=== PATIENT | male | born 1965 | race Caucasian/White ===

== ENCOUNTER 2021-02-24 15:46 | Emergency (ER) | payer OTHER, MEDICARE ==
[2021-02-24] MEDS ORDERED: HYDROcodone/Acetaminophen 10/325 mg Tablet ONE (17:12)
== END 2021-02-24 18:45 | disposition home or self-care (01) ==
LOC: CSHERS 15:46
DX: S62.337A Displaced fracture of neck of fifth metacarpal bone, left hand, initial encounter for closed fracture (principal); S52.125A Nondisplaced fracture of head of left radius, initial encounter for closed fracture; E11.9 Type 2 diabetes mellitus without complications; J44.9 Chronic obstructive pulmonary disease, unspecified; L40.9 Psoriasis, unspecified; I11.0 Hypertensive heart disease with heart failure; I50.9 Heart failure, unspecified; Z87.891 Personal history of nicotine dependence; W01.0XXA Fall on same level from slipping, tripping and stumbling without subsequent striking against object, initial encounter
CPT/HCPCS: 26600

== ENCOUNTER 2021-03-16 21:19 | Emergency (ER) | payer MEDICARE ==
[2021-03-16 22:07] LABS: #Basophils 0.1 10x3/uL (0.0-0.2); #Eosinphils 0.2 10x3/uL (0.0-0.5); #Monocytes 0.5 10x3/uL (0.0-1.1); #Neutrophils 7.2 10x3/uL (1.5-8.4); %Basophils 0.6 % (0.0-2.0); %Lymphocytes 18.8 % (18.0-47.0); %Monocytes 4.9 % (0.0-10.0); %Neutrophils 73.1 % (40.0-75.0); Hemoglobin 12.8 g/dL (13.5-17.5); Mean Corpuscular HGB CONC 32.6 g/dL (32.0-36.0); Mean Corpuscular Hemoglobin 27.9 pg (27.0-33.0); Mean Corpuscular Volume 85.6 fl (81.2-95.1); Platelet Count 347 10x3/uL (150-450); Red Blood Cell (RBC) Count 4.59 10x6/uL (4.32-5.72); White Blood Cell (WBC) Count 9.8 10x3/uL (3.5-10.5)
[2021-03-16] MEDS ORDERED: Aspirin Chewable 81 MG TAB ONE (22:10)
[2021-03-16 22:11] LABS: ALT (SGPT) 14 U/L (8-55); AST (SGOT) 10 U/L (5-34); Alkaline Phosphatase 68 U/L (40-110); Anion Gap 13 mmol/L (10-20); BUN (Urea Nitrogen) 20 mg/dL (8.4-25.7); Bilirubin, Total 0.3 mg/dL (0.2-1.2); Calc. Creatinine Clearance 0 mL/min (70-130); Calcium 8.6 mg/dL (7.8-10.44); Carbon Dioxide 22 mmol/L (22-29); Chloride 106 mmol/L (98-107); Globulin 2.7 g/dL (2.4-3.5); Glucose 208 mg/dL (70-105); Potassium 4.3 mmol/L (3.5-5.1); Protein, Total 6.7 g/dL (6.0-8.3); Sodium 137 mmol/L (136-145)
[2021-03-16 22:33] LABS: CKMB 1.6 ng/mL (0-6.6)
[2021-03-16 23:04] LABS: SARS-CoV-2 NAA Rapid Test Not Detected (NotDetected)
== END 2021-03-17 01:48 | disposition short-term general hospital (02) ==
LOC: CSHERS 21:19
DX: R53.1 Weakness (principal); R77.8 Other specified abnormalities of plasma proteins; Z20.822 Contact with and (suspected) exposure to COVID-19; I11.0 Hypertensive heart disease with heart failure; I50.9 Heart failure, unspecified; E11.9 Type 2 diabetes mellitus without complications; J44.9 Chronic obstructive pulmonary disease, unspecified; Z87.891 Personal history of nicotine dependence
CPT/HCPCS: 71045; 80053; 82553; 83880; 84484; 85025; 93005; 99285; U0002

== ENCOUNTER 2021-04-01 20:01 | Emergency (ER) | payer MEDICARE ==
[2021-04-01 20:58] LABS: #Basophils 0.1 10x3/uL (0.0-0.2); #Monocytes 0.7 10x3/uL (0.0-1.1); #Neutrophils 9.7 10x3/uL (1.5-8.4); %Basophils 0.4 % (0.0-2.0); %Eosinophils 0.1 % (0.0-6.0); %Lymphocytes 9.7 % (18.0-47.0); %Monocytes 5.9 % (0.0-10.0); %Neutrophils 82.6 % (40.0-75.0); Mean Corpuscular HGB CONC 33.1 g/dL (32.0-36.0); Mean Corpuscular Hemoglobin 27.7 pg (27.0-33.0); Mean Corpuscular Volume 83.6 fl (81.2-95.1); Platelet Count 395 10x3/uL (150-450); RBC Distribution Width 13.7 % (11.5-14.5); White Blood Cell (WBC) Count 11.8 10x3/uL (3.5-10.5)
[2021-04-01 21:11] LABS: ALT (SGPT) 18 U/L (8-55); AST (SGOT) 13 U/L (5-34); Alkaline Phosphatase 66 U/L (40-110); Anion Gap 13 mmol/L (10-20); BUN (Urea Nitrogen) 19 mg/dL (8.4-25.7); Bilirubin, Total 0.3 mg/dL (0.2-1.2); Calc. Creatinine Clearance 0 mL/min (70-130); Calcium 9.1 mg/dL (7.8-10.44); Carbon Dioxide 23 mmol/L (22-29); Chloride 101 mmol/L (98-107); Globulin 3.5 g/dL (2.4-3.5); Glucose 272 mg/dL (70-105); Potassium 4.2 mmol/L (3.5-5.1); Protein, Total 7.5 g/dL (6.0-8.3); Sodium 133 mmol/L (136-145)
[2021-04-01 21:41] LABS: CKMB 4.1 ng/mL (0-6.6)
[2021-04-01] MEDS ORDERED: Aspirin Chewable 81 MG TAB ONE (22:28)
== END 2021-04-02 00:49 | disposition short-term general hospital (02) ==
LOC: CSHERS 20:01
DX: R42 Dizziness and giddiness (principal); R05.9 Cough, unspecified; E11.9 Type 2 diabetes mellitus without complications; J44.9 Chronic obstructive pulmonary disease, unspecified; I11.0 Hypertensive heart disease with heart failure; I50.9 Heart failure, unspecified; Z87.891 Personal history of nicotine dependence; Z79.899 Other long term (current) drug therapy
CPT/HCPCS: 70450; 71045; 80053; 82553; 84484; 85025; 93005

== ENCOUNTER 2021-04-24 02:35 | Observation (INO) | payer MEDICARE ==
[2021-04-24] MEDS ORDERED: Meclizine HCl 25 MG TAB ONE (03:03)
[2021-04-24 03:16] LABS: #Basophils 0.1 10x3/uL (0.0-0.2); #Eosinphils 0.4 10x3/uL (0.0-0.5); #Monocytes 0.6 10x3/uL (0.0-1.1); #Neutrophils 4.4 10x3/uL (1.5-8.4); %Basophils 0.7 % (0.0-2.0); %Eosinophils 5.8 % (0.0-6.0); %Lymphocytes 20.3 % (18.0-47.0); %Monocytes 8.1 % (0.0-10.0); %Neutrophils 64.4 % (40.0-75.0); Hemoglobin 12.8 g/dL (13.5-17.5); Mean Corpuscular HGB CONC 33.2 g/dL (32.0-36.0); Mean Corpuscular Hemoglobin 27.8 pg (27.0-33.0); Mean Corpuscular Volume 83.7 fl (81.2-95.1); Mean Platelet Volume 9.1 fl (7.4-10.4); Platelet Count 290 10x3/uL (150-450); RBC Distribution Width 14.5 % (11.5-14.5); Red Blood Cell (RBC) Count 4.61 10x6/uL (4.32-5.72); White Blood Cell (WBC) Count 6.9 10x3/uL (3.5-10.5)
[2021-04-24 03:30] LABS: ALT (SGPT) 16 U/L (8-55); AST (SGOT) 10 U/L (5-34); Albumin 4.2 g/dL (3.5-5.0); Alkaline Phosphatase 77 U/L (40-110); Anion Gap 14 mmol/L (10-20); BUN (Urea Nitrogen) 22 mg/dL (8.4-25.7); Bilirubin, Total 0.3 mg/dL (0.2-1.2); Calc. Creatinine Clearance 0 mL/min (70-130); Calcium 8.7 mg/dL (7.8-10.44); Carbon Dioxide 25 mmol/L (22-29); Chloride 102 mmol/L (98-107); Glucose 236 mg/dL (70-105); Potassium 4.4 mmol/L (3.5-5.1); Protein, Total 7.2 g/dL (6.0-8.3); Sodium 137 mmol/L (136-145)
[2021-04-24 03:50] LABS: CKMB 1.4 ng/mL (0-6.6)
[2021-04-24] MEDS ORDERED: Aspirin 325 MG TAB ONE (04:38)
[2021-04-24] MEDS ORDERED: Ondansetron PF 4 MG/2 ML Vial IVP PRN (05:47)
[2021-04-24] MEDS ORDERED: Guaifenesin DM 100-10/5 ML UDCUP PO PRN (05:47)
[2021-04-24] MEDS ORDERED: Acetaminophen 325 MG TAB PO PRN (05:47)
[2021-04-24] MEDS ORDERED: HYDROcodone/Acetaminophen 5/325 mg Tablet PO PRN (05:47)
[2021-04-24] MEDS ORDERED: Dextrose 5% in Water 1,000 ML IV PRN (05:47)
[2021-04-24] MEDS ORDERED: Senokot S 8.6-50 MG TAB PO PRN (05:47)
[2021-04-24] MEDS ORDERED: Dextrose 50% Abboject 50 ML SYRINGE SLOW IVP PRN (05:47)
[2021-04-24] MEDS ORDERED: Calcium Carbonate 500 MG ChewTAB PO PRN (05:47)
[2021-04-24] MEDS ORDERED: HumaLOG 300 UNITS/3 ML VIAL SC PRN (05:47)
[2021-04-24] MEDS ORDERED: Mometasone 200 MCG/Formoterol 5 MCG 120 PUFF INHALER INH SCH (06:30)
[2021-04-24] MEDS ORDERED: metFORMIN 500 MG TAB PO SCH (08:00)
[2021-04-24 08:12] VITALS: BMI 40.6
[2021-04-24 08:26] LABS: CKMB 1.2 ng/mL (0-6.6)
[2021-04-24] MEDS ORDERED: Nicotine 14 MG PATCH TD SCH (09:00)
[2021-04-24] MEDS ORDERED: Fluticasone Propionate Nasal Spray 16 gm Bottle NASAL SCH (09:00)
[2021-04-24] MEDS ORDERED: Carvedilol 25 MG TAB PO SCH (09:00)
[2021-04-24] MEDS ORDERED: Furosemide 40 MG TAB PO SCH (09:00)
[2021-04-24] MEDS ORDERED: Clopidogrel Bisulfate 75 MG TAB PO SCH (09:00)
[2021-04-24] MEDS ORDERED: Enoxaparin Sodium 40 MG/0.4 ML SYRINGE SC SCH (09:00)
[2021-04-24] MEDS ORDERED: Oxymetazoline HCl 0.05% ( 15 ML ) NASAL SCH (09:00)
[2021-04-24] MEDS ORDERED: Ferrous Sulfate 325 MG TAB PO SCH (09:00)
[2021-04-24] MEDS ORDERED: Amoxicillin/Potassium Clav 875 MG TAB PO SCH (09:00)
[2021-04-24] MEDS ORDERED: Aspirin 81 mg Enteric Coated Tablet PO SCH (09:00)
[2021-04-24 11:22] LABS: SARS-CoV-2 NAA Rapid Test Not Detected (NotDetected)
[2021-04-24 14:02] LABS: CKMB 1.2 ng/mL (0-6.6)
[2021-04-24 16:44] VITALS: BP 124/71; TEMP 99.1
[2021-04-24 17:05] LABS: Hemoglobin A1c 8.2 % (4.0-6.0)
[2021-04-24] MEDS ORDERED: Atorvastatin Calcium 20 MG TAB PO SCH (21:00)
[2021-04-24] MEDS ORDERED: Montelukast Sodium 10 mg Tablet PO SCH (21:00)
[2021-04-24] MEDS ORDERED: rOPINIRole HCl 1 MG TAB PO SCH (21:00)
== END 2021-04-24 17:34 | disposition home or self-care (01) ==
LOC: CSHERS 02:35 → INTOOBSV 06:43 → CSHTELE 06:43
PROVIDERS: ADMIT Student in an Organized Health Care Education/Training Program; ATTEND Internal Medicine
DX: R42 Dizziness and giddiness (principal); R77.8 Other specified abnormalities of plasma proteins; E78.5 Hyperlipidemia, unspecified; E11.22 Type 2 diabetes mellitus with diabetic chronic kidney disease; I13.0 Hypertensive heart and chronic kidney disease with heart failure and stage 1 through stage 4 chronic kidney disease, or unspecified chronic kidney disease; I50.32 Chronic diastolic (congestive) heart failure; N18.30 Chronic kidney disease, stage 3 unspecified; J44.9 Chronic obstructive pulmonary disease, unspecified; G47.33 Obstructive sleep apnea (adult) (pediatric); E66.9 Obesity, unspecified; I25.10 Atherosclerotic heart disease of native coronary artery without angina pectoris; Z86.73 Personal history of transient ischemic attack (TIA), and cerebral infarction without residual deficits; F17.210 Nicotine dependence, cigarettes, uncomplicated; J32.9 Chronic sinusitis, unspecified; Z79.899 Other long term (current) drug therapy; Z79.84 Long term (current) use of oral hypoglycemic drugs; Z79.82 Long term (current) use of aspirin; Z20.822 Contact with and (suspected) exposure to COVID-19
CPT/HCPCS: 70450; 70551; 80053; 82553; 82962; 83036; 84484 ×2; 85025; 93005; 97139; 99285; U0002; 36415; 36416; J1650

== ENCOUNTER 2021-05-06 21:16 | Emergency (ER) | payer MEDICARE ==
[2021-05-06] MEDS ORDERED: Meclizine HCl 25 MG TAB ONE (21:53)
[2021-05-06] MEDS ORDERED: Diazepam 5 MG TAB ONE (21:53)
[2021-05-06 22:04] LABS: #Basophils 0.1 10x3/uL (0.0-0.2); #Eosinphils 0.3 10x3/uL (0.0-0.5); #Monocytes 0.6 10x3/uL (0.0-1.1); #Neutrophils 6.6 10x3/uL (1.5-8.4); %Basophils 0.7 % (0.0-2.0); %Eosinophils 3.2 % (0.0-6.0); %Lymphocytes 20.5 % (18.0-47.0); %Monocytes 6.2 % (0.0-10.0); %Neutrophils 68.2 % (40.0-75.0); Hemoglobin 12.8 g/dL (13.5-17.5); Mean Corpuscular HGB CONC 32.8 g/dL (32.0-36.0); Mean Corpuscular Hemoglobin 27.7 pg (27.0-33.0); Mean Corpuscular Volume 84.4 fl (81.2-95.1); Mean Platelet Volume 9.1 fl (7.4-10.4); Platelet Count 283 10x3/uL (150-450); RBC Distribution Width 14.5 % (11.5-14.5); Red Blood Cell (RBC) Count 4.62 10x6/uL (4.32-5.72); White Blood Cell (WBC) Count 9.6 10x3/uL (3.5-10.5)
[2021-05-06 22:24] LABS: ALT (SGPT) 18 U/L (8-55); AST (SGOT) 12 U/L (5-34); Albumin 4.1 g/dL (3.5-5.0); Alkaline Phosphatase 71 U/L (40-110); Anion Gap 15 mmol/L (10-20); BUN (Urea Nitrogen) 19 mg/dL (8.4-25.7); Bilirubin, Total 0.3 mg/dL (0.2-1.2); Calc. Creatinine Clearance 0 mL/min (70-130); Calcium 9.1 mg/dL (7.8-10.44); Carbon Dioxide 22 mmol/L (22-29); Chloride 105 mmol/L (98-107); Globulin 3.2 g/dL (2.4-3.5); Glucose 149 mg/dL (70-105); Potassium 4.5 mmol/L (3.5-5.1); Protein, Total 7.3 g/dL (6.0-8.3); Sodium 137 mmol/L (136-145)
[2021-05-06] MEDS ORDERED: Ondansetron PF 4 MG/2 ML Vial ONE (22:38)
[2021-05-06 22:43] LABS: CKMB 1.8 ng/mL (0-6.6)
== END 2021-05-06 23:00 | disposition home or self-care (01) ==
LOC: CSHERS 21:16
DX: R42 Dizziness and giddiness (principal); H55.00 Unspecified nystagmus; J44.9 Chronic obstructive pulmonary disease, unspecified; E11.9 Type 2 diabetes mellitus without complications; I11.0 Hypertensive heart disease with heart failure; I50.9 Heart failure, unspecified; Z86.711 Personal history of pulmonary embolism; Z87.891 Personal history of nicotine dependence; Z79.899 Other long term (current) drug therapy; Z79.84 Long term (current) use of oral hypoglycemic drugs; Z86.73 Personal history of transient ischemic attack (TIA), and cerebral infarction without residual deficits
CPT/HCPCS: 70450; 71045; 80053; 82553; 84484; 85025; 93005; 96374; J2405

== ENCOUNTER 2021-05-15 19:23 | Inpatient (IN) | payer MEDICARE ==
[2021-05-15 20:08] LABS: #Basophils 0.1 10x3/uL (0.0-0.2); #Eosinphils 0.3 10x3/uL (0.0-0.5); #Monocytes 0.7 10x3/uL (0.0-1.1); #Neutrophils 6.6 10x3/uL (1.5-8.4); %Basophils 0.6 % (0.0-2.0); %Eosinophils 3.1 % (0.0-6.0); %Monocytes 6.9 % (0.0-10.0); %Neutrophils 65.7 % (40.0-75.0); Hemoglobin 13.5 g/dL (13.5-17.5); Mean Corpuscular HGB CONC 32.8 g/dL (32.0-36.0); Mean Corpuscular Hemoglobin 27.9 pg (27.0-33.0); Mean Corpuscular Volume 85.1 fl (81.2-95.1); Mean Platelet Volume 8.9 fl (7.4-10.4); Platelet Count 331 10x3/uL (150-450); RBC Distribution Width 15.1 % (11.5-14.5); Red Blood Cell (RBC) Count 4.84 10x6/uL (4.32-5.72)
[2021-05-15 20:14] LABS: ALT (SGPT) 24 U/L (8-55); AST (SGOT) 15 U/L (5-34); Albumin 4.2 g/dL (3.5-5.0); Alkaline Phosphatase 71 U/L (40-110); Anion Gap 18 mmol/L (10-20); BUN (Urea Nitrogen) 21 mg/dL (8.4-25.7); Bilirubin, Total 0.4 mg/dL (0.2-1.2); Calc. Creatinine Clearance 0 mL/min (70-130); Calcium 8.5 mg/dL (7.8-10.44); Carbon Dioxide 22 mmol/L (22-29); Chloride 103 mmol/L (98-107); Globulin 2.9 g/dL (2.4-3.5); Glucose 160 mg/dL (70-105); Protein, Total 7.1 g/dL (6.0-8.3); Sodium 139 mmol/L (136-145)
[2021-05-15] MEDS ORDERED: Meclizine HCl 25 MG TAB ONE (20:31)
[2021-05-15] MEDS ORDERED: Aspirin Chewable 81 MG TAB ONE (21:41)
[2021-05-15] MEDS ORDERED: Aspirin 325 MG TAB PO SCH (22:45)
[2021-05-15] MEDS ORDERED: FLU VACC QS2021-22(6MOS UP)/PF 60 MCG/0.5 ML SYRINGE IM ONE (23:45)
[2021-05-15] MEDS ORDERED: Prevnar 13-Val Conj/PF 0.5 ML SYRINGE IM ONE (23:45)
[2021-05-15 23:55] LABS: Magnesium 1.8 mg/dL (1.6-2.6)
[2021-05-16 00:01] LABS: Troponin I 0.046 ng/mL (< 0.028)
[2021-05-16 04:52] VITALS: BMI 40.6
[2021-05-16 05:25] LABS: Anion Gap 20 mmol/L (10-20); BUN (Urea Nitrogen) 19 mg/dL (8.4-25.7); Calc. Creatinine Clearance 109 mL/min (70-130); Calcium 8.8 mg/dL (7.8-10.44); Carbon Dioxide 19 mmol/L (22-29); Cardiac Risk 5.9 (Less than 4.5); Chloride 105 mmol/L (98-107); Cholesterol 176 mg/dl (< 200 Desired); Glucose 113 mg/dL (70-105); HDL Cholesterol 30 mg/dL (>60 Neg Risk); LDL Cholesterol, Calculated 103 mg/dL; Sodium 140 mmol/L (136-145); Triglycerides 215 mg/dL (Less than 150)
[2021-05-16 05:27] LABS: Troponin I 0.027 ng/mL (< 0.028)
[2021-05-16] MEDS ORDERED: Aspirin 300 MG Suppository PR SCH (06:15)
[2021-05-16] MEDS ORDERED: Nitroglycerin 0.4 MG TAB (25 Tab Bottle) SL PRN (06:29)
[2021-05-16] MEDS ORDERED: Mometasone/Formoterol 60 PUFF AER INH SCH (06:30)
[2021-05-16] MEDS: Sodium Chloride 0.9% 1,000 ML IV SCH (06:53)
[2021-05-16] MEDS: Aspirin 300 MG Suppository PR SCH (07:41)
[2021-05-16 07:57] LABS: #Basophils 0.1 10x3/uL (0.0-0.2); #Eosinphils 0.3 10x3/uL (0.0-0.5); #Monocytes 0.7 10x3/uL (0.0-1.1); #Neutrophils 5.8 10x3/uL (1.5-8.4); %Basophils 0.6 % (0.0-2.0); %Eosinophils 3.2 % (0.0-6.0); %Lymphocytes 26.9 % (18.0-47.0); %Monocytes 7.2 % (0.0-10.0); %Neutrophils 61.7 % (40.0-75.0); Hemoglobin 13.1 g/dL (13.5-17.5); Mean Corpuscular Hemoglobin 27.6 pg (27.0-33.0); Mean Corpuscular Volume 86.3 fl (81.2-95.1); Mean Platelet Volume 8.8 fl (7.4-10.4); Platelet Count 318 10x3/uL (150-450); RBC Distribution Width 15.2 % (11.5-14.5); Red Blood Cell (RBC) Count 4.74 10x6/uL (4.32-5.72); White Blood Cell (WBC) Count 9.4 10x3/uL (3.5-10.5)
[2021-05-16] MEDS ORDERED: Furosemide 40 MG/4 ML VIAL SLOW IVP SCH (08:45)
[2021-05-16] MEDS: Clopidogrel Bisulfate 75 MG TAB PO SCH (08:55)
[2021-05-16] MEDS: Carvedilol 25 MG TAB PO SCH ×2 (08:55→20:53)
[2021-05-16] MEDS: Montelukast Sodium 10 mg Tablet PO SCH (08:55)
[2021-05-16] MEDS: metFORMIN 500 MG TAB PO SCH ×2 (08:55→15:40)
[2021-05-16] MEDS: Ferrous Sulfate 325 MG TAB PO SCH (08:55)
[2021-05-16] MEDS: Potassium Chloride 20 MEQ TAB PO SCH (08:55)
[2021-05-16] MEDS ORDERED: Non-Formulary Medication 1 EACH (Omeprazole [Omeprazole] 40 MG Capsule.Dr) PO SCH (09:00)
[2021-05-16] MEDS ORDERED: Aspirin 81 mg Enteric Coated Tablet PO SCH ×2 (09:00)
[2021-05-16] MEDS ORDERED: Furosemide 40 MG TAB PO SCH (09:00)
[2021-05-16] MEDS: Pantoprazole 40 MG VIAL IVP SCH (09:26)
[2021-05-16] MEDS: Enoxaparin Sodium 40 MG/0.4 ML SYRINGE SC SCH (09:26)
[2021-05-16] MEDS: Mometasone/Formoterol 200/5 60 PUFF INH SCH ×2 (10:21→20:45)
[2021-05-16] MEDS: Nitroglycerin 0.1mg/Hour PATCH TD SCH (10:39)
[2021-05-16] MEDS ORDERED: Albuterol Sulfate 2.5 mg/3 ml Neb NEB PRN (12:00)
[2021-05-16 14:43] LABS: SARS-CoV-2 PCR by NAA Not Detected (NotDetected)
[2021-05-16] MEDS: Lactated Ringer's 1,000 ML IV SCH ×2 (14:56→20:54)
[2021-05-16] MEDS: Furosemide 40 MG/4 ML VIAL SLOW IVP SCH (14:59)
[2021-05-16] MEDS: Amlodipine 5 MG TAB PO SCH (20:53)
[2021-05-16] MEDS: Atorvastatin Calcium 20 MG TAB PO SCH (20:53)
[2021-05-16] MEDS: rOPINIRole HCl 1 MG TAB PO SCH (20:54)
[2021-05-17] MEDS: Sodium Chloride 0.9% 1,000 ML IV SCH (02:30)
[2021-05-17 03:59] LABS: #Basophils 0.1 10x3/uL (0.0-0.2); #Eosinphils 0.2 10x3/uL (0.0-0.5); #Monocytes 0.7 10x3/uL (0.0-1.1); #Neutrophils 5.4 10x3/uL (1.5-8.4); %Basophils 0.7 % (0.0-2.0); %Eosinophils 2.4 % (0.0-6.0); %Lymphocytes 26.1 % (18.0-47.0); %Monocytes 8.1 % (0.0-10.0); %Neutrophils 62.2 % (40.0-75.0); Hemoglobin 13.5 g/dL (13.5-17.5); Mean Corpuscular HGB CONC 32.5 g/dL (32.0-36.0); Mean Corpuscular Hemoglobin 27.7 pg (27.0-33.0); Mean Platelet Volume 8.7 fl (7.4-10.4); Platelet Count 295 10x3/uL (150-450); RBC Distribution Width 15.1 % (11.5-14.5); Red Blood Cell (RBC) Count 4.88 10x6/uL (4.32-5.72); White Blood Cell (WBC) Count 8.6 10x3/uL (3.5-10.5)
[2021-05-17 05:16] LABS: Anion Gap 17 mmol/L (10-20); BUN (Urea Nitrogen) 20 mg/dL (8.4-25.7); Calc. Creatinine Clearance 120 mL/min (70-130); Carbon Dioxide 25 mmol/L (22-29); Chloride 103 mmol/L (98-107); Glucose 101 mg/dL (70-105); Potassium 3.6 mmol/L (3.5-5.1); Sodium 141 mmol/L (136-145)
[2021-05-17] MEDS: Furosemide 40 MG/4 ML VIAL SLOW IVP SCH ×2 (06:05→14:02)
[2021-05-17] MEDS: Lactated Ringer's 1,000 ML IV SCH ×3 (06:07→21:16)
[2021-05-17] MEDS: Mometasone/Formoterol 200/5 60 PUFF INH SCH ×2 (08:00→19:21)
[2021-05-17] MEDS: Carvedilol 25 MG TAB PO SCH ×2 (08:49→22:39)
[2021-05-17] MEDS: metFORMIN 500 MG TAB PO SCH ×2 (08:49→16:48)
[2021-05-17] MEDS: Clopidogrel Bisulfate 75 MG TAB PO SCH (08:49)
[2021-05-17] MEDS: Ferrous Sulfate 325 MG TAB PO SCH (08:49)
[2021-05-17] MEDS: Montelukast Sodium 10 mg Tablet PO SCH (08:50)
[2021-05-17] MEDS: Potassium Chloride 20 MEQ TAB PO SCH (08:50)
[2021-05-17] MEDS: Enoxaparin Sodium 40 MG/0.4 ML SYRINGE SC SCH (09:08)
[2021-05-17] MEDS: Pantoprazole 40 MG VIAL IVP SCH (09:08)
[2021-05-17] MEDS: Aspirin 300 MG Suppository PR SCH (09:08)
[2021-05-17] MEDS: Nitroglycerin 0.1mg/Hour PATCH TD SCH (09:42)
[2021-05-17] MEDS ORDERED: Lorazepam 2 MG/ML VIAL SLOW IVP SCH (22:30)
[2021-05-17] MEDS: Amlodipine 5 MG TAB PO SCH (22:39)
[2021-05-17] MEDS: Atorvastatin Calcium 20 MG TAB PO SCH (22:39)
[2021-05-17] MEDS: rOPINIRole HCl 1 MG TAB PO SCH (22:40)
[2021-05-18] MEDS: Sodium Chloride 0.9% 1,000 ML IV SCH ×2 (02:08→18:23)
[2021-05-18 04:19] LABS: #Basophils 0.1 10x3/uL (0.0-0.2); #Eosinphils 0.2 10x3/uL (0.0-0.5); #Monocytes 0.7 10x3/uL (0.0-1.1); #Neutrophils 5.1 10x3/uL (1.5-8.4); %Basophils 0.8 % (0.0-2.0); %Eosinophils 2.3 % (0.0-6.0); %Lymphocytes 26.9 % (18.0-47.0); %Monocytes 8.5 % (0.0-10.0); %Neutrophils 61.1 % (40.0-75.0); Hemoglobin 13.2 g/dL (13.5-17.5); Mean Corpuscular HGB CONC 32.2 g/dL (32.0-36.0); Mean Corpuscular Hemoglobin 27.6 pg (27.0-33.0); Mean Corpuscular Volume 85.6 fl (81.2-95.1); Mean Platelet Volume 8.9 fl (7.4-10.4); Platelet Count 270 10x3/uL (150-450); RBC Distribution Width 14.6 % (11.5-14.5); Red Blood Cell (RBC) Count 4.79 10x6/uL (4.32-5.72); White Blood Cell (WBC) Count 8.4 10x3/uL (3.5-10.5)
[2021-05-18 04:47] LABS: Anion Gap 18 mmol/L (10-20); BUN (Urea Nitrogen) 19 mg/dL (8.4-25.7); Calc. Creatinine Clearance 114 mL/min (70-130); Carbon Dioxide 26 mmol/L (22-29); Chloride 103 mmol/L (98-107); Glucose 86 mg/dL (70-105); Potassium 3.7 mmol/L (3.5-5.1); Sodium 143 mmol/L (136-145)
[2021-05-18] MEDS: Lactated Ringer's 1,000 ML IV SCH ×2 (06:05→14:19)
[2021-05-18] MEDS: Furosemide 40 MG/4 ML VIAL SLOW IVP SCH ×2 (06:06→14:19)
[2021-05-18] MEDS: Mometasone/Formoterol 200/5 60 PUFF INH SCH ×2 (07:38→19:21)
[2021-05-18] MEDS: Montelukast Sodium 10 mg Tablet PO SCH (08:25)
[2021-05-18] MEDS: Potassium Chloride 20 MEQ TAB PO SCH (08:25)
[2021-05-18] MEDS: Ferrous Sulfate 325 MG TAB PO SCH (08:25)
[2021-05-18] MEDS: metFORMIN 500 MG TAB PO SCH ×2 (08:25→18:14)
[2021-05-18] MEDS: Clopidogrel Bisulfate 75 MG TAB PO SCH (08:25)
[2021-05-18] MEDS: Carvedilol 25 MG TAB PO SCH ×2 (08:25→22:22)
[2021-05-18] MEDS: Enoxaparin Sodium 40 MG/0.4 ML SYRINGE SC SCH (09:28)
[2021-05-18] MEDS: Nitroglycerin 0.1mg/Hour PATCH TD SCH (09:28)
[2021-05-18] MEDS: Pantoprazole 40 MG VIAL IVP SCH (09:28)
[2021-05-18] MEDS: Aspirin 300 MG Suppository PR SCH (12:09)
[2021-05-18] MEDS ORDERED: Lorazepam 2 MG/ML VIAL SLOW IVP PRN (21:23)
[2021-05-18] MEDS ORDERED: diphenhydrAMINE 50 MG/ML VIAL IVP PRN (21:24)
[2021-05-18] MEDS: Amlodipine 5 MG TAB PO SCH (22:19)
[2021-05-18] MEDS: Atorvastatin Calcium 20 MG TAB PO SCH (22:19)
[2021-05-18] MEDS: rOPINIRole HCl 1 MG TAB PO SCH (22:22)
[2021-05-19 04:34] LABS: #Basophils 0.1 10x3/uL (0.0-0.2); #Eosinphils 0.2 10x3/uL (0.0-0.5); #Monocytes 0.8 10x3/uL (0.0-1.1); #Neutrophils 5.7 10x3/uL (1.5-8.4); %Basophils 0.6 % (0.0-2.0); %Eosinophils 2.1 % (0.0-6.0); %Lymphocytes 23.8 % (18.0-47.0); %Monocytes 8.7 % (0.0-10.0); %Neutrophils 64.5 % (40.0-75.0); Hemoglobin 13.4 g/dL (13.5-17.5); Mean Corpuscular HGB CONC 32.5 g/dL (32.0-36.0); Mean Corpuscular Hemoglobin 27.8 pg (27.0-33.0); Mean Corpuscular Volume 85.5 fl (81.2-95.1); Mean Platelet Volume 8.7 fl (7.4-10.4); Platelet Count 265 10x3/uL (150-450); RBC Distribution Width 14.7 % (11.5-14.5); Red Blood Cell (RBC) Count 4.82 10x6/uL (4.32-5.72); White Blood Cell (WBC) Count 8.9 10x3/uL (3.5-10.5)
[2021-05-19 04:49] LABS: Anion Gap 19 mmol/L (10-20); BUN (Urea Nitrogen) 19 mg/dL (8.4-25.7); Calc. Creatinine Clearance 113 mL/min (70-130); Calcium 9.1 mg/dL (7.8-10.44); Carbon Dioxide 26 mmol/L (22-29); Chloride 102 mmol/L (98-107); Glucose 80 mg/dL (70-105); Potassium 3.6 mmol/L (3.5-5.1); Sodium 143 mmol/L (136-145)
[2021-05-19] MEDS: Furosemide 40 MG/4 ML VIAL SLOW IVP SCH ×2 (05:48→13:11)
[2021-05-19] MEDS: Mometasone/Formoterol 200/5 60 PUFF INH SCH ×2 (06:28→22:13)
[2021-05-19] MEDS: Ferrous Sulfate 325 MG TAB PO SCH (08:07)
[2021-05-19] MEDS: Carvedilol 25 MG TAB PO SCH ×2 (08:07→20:18)
[2021-05-19] MEDS: Clopidogrel Bisulfate 75 MG TAB PO SCH (08:07)
[2021-05-19] MEDS: Montelukast Sodium 10 mg Tablet PO SCH (08:07)
[2021-05-19] MEDS: metFORMIN 500 MG TAB PO SCH ×2 (08:07→15:47)
[2021-05-19] MEDS: Potassium Chloride 20 MEQ TAB PO SCH (08:08)
[2021-05-19] MEDS: Aspirin 300 MG Suppository PR SCH (08:19)
[2021-05-19] MEDS: Nitroglycerin 0.1mg/Hour PATCH TD SCH (08:19)
[2021-05-19] MEDS: Enoxaparin Sodium 40 MG/0.4 ML SYRINGE SC SCH (08:19)
[2021-05-19] MEDS ORDERED: Labetalol HCl 100 MG/20 ML VIAL SLOW IVP PRN (08:34)
[2021-05-19] MEDS ORDERED: hydrALAZINE 20 MG/ML VIAL SLOW IVP PRN (08:38)
[2021-05-19] MEDS: Enalaprilat Dihydrate 1.25 MG/ML VIAL SLOW IVP SCH ×3 (10:11→20:24)
[2021-05-19] MEDS: Metoprolol Tartrate 5 MG/5 ML VIAL IVP SCH ×3 (10:14→20:24)
[2021-05-19] MEDS: Sodium Chloride 0.9% 1,000 ML IV SCH (13:11)
[2021-05-19] MEDS ORDERED: SUMAtriptan Succinate 50 MG TAB PO SCH (19:00)
[2021-05-19] MEDS ORDERED: Acetaminophen 500 MG TAB PO SCH (19:00)
[2021-05-19] MEDS: Atorvastatin Calcium 20 MG TAB PO SCH (20:18)
[2021-05-19] MEDS: rOPINIRole HCl 1 MG TAB PO SCH (20:18)
[2021-05-19] MEDS: Amlodipine 5 MG TAB PO SCH (20:18)
[2021-05-20 04:10] LABS: #Basophils 0.1 10x3/uL (0.0-0.2); #Eosinphils 0.3 10x3/uL (0.0-0.5); #Monocytes 0.8 10x3/uL (0.0-1.1); #Neutrophils 6.3 10x3/uL (1.5-8.4); %Basophils 0.6 % (0.0-2.0); %Eosinophils 2.9 % (0.0-6.0); %Lymphocytes 23.2 % (18.0-47.0); %Monocytes 8.5 % (0.0-10.0); %Neutrophils 64.4 % (40.0-75.0); Hemoglobin 13.6 g/dL (13.5-17.5); Mean Corpuscular HGB CONC 33.5 g/dL (32.0-36.0); Mean Corpuscular Hemoglobin 28.3 pg (27.0-33.0); Mean Corpuscular Volume 84.6 fl (81.2-95.1); Mean Platelet Volume 9.1 fl (7.4-10.4); Platelet Count 248 10x3/uL (150-450); RBC Distribution Width 14.8 % (11.5-14.5); White Blood Cell (WBC) Count 9.8 10x3/uL (3.5-10.5)
[2021-05-20 04:17] LABS: Anion Gap 17 mmol/L (10-20); BUN (Urea Nitrogen) 19 mg/dL (8.4-25.7); Calc. Creatinine Clearance 116 mL/min (70-130); Carbon Dioxide 27 mmol/L (22-29); Chloride 100 mmol/L (98-107); Glucose 80 mg/dL (70-105); Potassium 3.4 mmol/L (3.5-5.1); Sodium 141 mmol/L (136-145)
[2021-05-20] MEDS: Metoprolol Tartrate 5 MG/5 ML VIAL IVP SCH ×4 (04:22→21:40)
[2021-05-20] MEDS: Enalaprilat Dihydrate 1.25 MG/ML VIAL SLOW IVP SCH ×4 (04:30→21:41)
[2021-05-20] MEDS ORDERED: Dextrose 50% Abboject 50 ML SYRINGE SLOW IVP PRN (05:56)
[2021-05-20] MEDS: Furosemide 40 MG/4 ML VIAL SLOW IVP SCH ×2 (06:20→15:28)
[2021-05-20] MEDS: Mometasone/Formoterol 200/5 60 PUFF INH SCH ×2 (06:51→19:06)
[2021-05-20] MEDS ORDERED: Potassium Chloride 20 MEQ TAB PO SCH (08:00)
[2021-05-20] MEDS: Sodium Chloride 0.9% 1,000 ML IV SCH (08:59)
[2021-05-20] MEDS: Nitroglycerin 0.1mg/Hour PATCH TD SCH (09:00)
[2021-05-20] MEDS: metFORMIN 500 MG TAB PO SCH ×2 (09:09→16:26)
[2021-05-20] MEDS: Clopidogrel Bisulfate 75 MG TAB PO SCH (09:10)
[2021-05-20] MEDS: Aspirin 300 MG Suppository PR SCH (09:10)
[2021-05-20] MEDS: Carvedilol 25 MG TAB PO SCH ×2 (09:10→21:43)
[2021-05-20] MEDS: Ferrous Sulfate 325 MG TAB PO SCH (09:11)
[2021-05-20] MEDS: Enoxaparin Sodium 40 MG/0.4 ML SYRINGE SC SCH (09:11)
[2021-05-20] MEDS: Potassium Chloride 20 MEQ TAB PO SCH (09:12)
[2021-05-20] MEDS: Montelukast Sodium 10 mg Tablet PO SCH (09:12)
[2021-05-20] MEDS: Meclizine HCl 25 MG TAB PO SCH (16:07)
[2021-05-20] MEDS: Atorvastatin Calcium 20 MG TAB PO SCH (21:43)
[2021-05-20] MEDS: Amlodipine 5 MG TAB PO SCH (21:43)
[2021-05-20] MEDS: rOPINIRole HCl 1 MG TAB PO SCH (21:43)
[2021-05-21 04:13] LABS: #Basophils 0.1 10x3/uL (0.0-0.2); #Eosinphils 0.3 10x3/uL (0.0-0.5); #Monocytes 0.8 10x3/uL (0.0-1.1); #Neutrophils 5.5 10x3/uL (1.5-8.4); %Basophils 0.8 % (0.0-2.0); %Eosinophils 3.8 % (0.0-6.0); %Lymphocytes 22.7 % (18.0-47.0); %Neutrophils 63.2 % (40.0-75.0); Hemoglobin 12.9 g/dL (13.5-17.5); Mean Corpuscular HGB CONC 33.9 g/dL (32.0-36.0); Mean Corpuscular Hemoglobin 28.3 pg (27.0-33.0); Mean Corpuscular Volume 83.3 fl (81.2-95.1); Mean Platelet Volume 9.1 fl (7.4-10.4); Platelet Count 246 10x3/uL (150-450); RBC Distribution Width 14.4 % (11.5-14.5); Red Blood Cell (RBC) Count 4.56 10x6/uL (4.32-5.72); White Blood Cell (WBC) Count 8.7 10x3/uL (3.5-10.5)
[2021-05-21 04:23] LABS: Anion Gap 17 mmol/L (10-20); BUN (Urea Nitrogen) 24 mg/dL (8.4-25.7); Calc. Creatinine Clearance 82 mL/min (70-130); Carbon Dioxide 28 mmol/L (22-29); Chloride 96 mmol/L (98-107); Glucose 145 mg/dL (70-105); Potassium 3.5 mmol/L (3.5-5.1); Sodium 137 mmol/L (136-145)
[2021-05-21] MEDS: Enalaprilat Dihydrate 1.25 MG/ML VIAL SLOW IVP SCH (05:53)
[2021-05-21] MEDS: Metoprolol Tartrate 5 MG/5 ML VIAL IVP SCH (05:54)
[2021-05-21] MEDS: Sodium Chloride 0.9% 1,000 ML IV SCH (06:15)
[2021-05-21] MEDS: Meclizine HCl 25 MG TAB PO SCH ×4 (06:21→20:30)
[2021-05-21] MEDS: Mometasone/Formoterol 200/5 60 PUFF INH SCH ×2 (06:28→19:38)
[2021-05-21] MEDS: Furosemide 40 MG/4 ML VIAL SLOW IVP SCH ×2 (06:31→14:37)
[2021-05-21] MEDS ORDERED: Sodium Chloride 0.9% 500 ML IV SCH (08:00)
[2021-05-21] MEDS: Enoxaparin Sodium 40 MG/0.4 ML SYRINGE SC SCH (08:45)
[2021-05-21] MEDS: Potassium Chloride 20 MEQ TAB PO SCH (08:46)
[2021-05-21] MEDS: metFORMIN 500 MG TAB PO SCH ×2 (08:47→16:45)
[2021-05-21] MEDS: Clopidogrel Bisulfate 75 MG TAB PO SCH (08:47)
[2021-05-21] MEDS: Montelukast Sodium 10 mg Tablet PO SCH (08:47)
[2021-05-21] MEDS: Ferrous Sulfate 325 MG TAB PO SCH (08:48)
[2021-05-21] MEDS: Aspirin 300 MG Suppository PR SCH (08:48)
[2021-05-21] MEDS: Nitroglycerin 0.1mg/Hour PATCH TD SCH (08:54)
[2021-05-21] MEDS: Atorvastatin Calcium 20 MG TAB PO SCH (20:26)
[2021-05-21] MEDS: Acetaminophen 325 MG TAB PO PRN (20:26)
[2021-05-21] MEDS: rOPINIRole HCl 1 MG TAB PO SCH (20:26)
[2021-05-22] MEDS: Sodium Chloride 0.9% 1,000 ML IV SCH ×2 (01:35→22:03)
[2021-05-22 04:19] LABS: #Basophils 0.1 10x3/uL (0.0-0.2); #Eosinphils 0.4 10x3/uL (0.0-0.5); #Monocytes 0.6 10x3/uL (0.0-1.1); #Neutrophils 4.4 10x3/uL (1.5-8.4); %Basophils 0.9 % (0.0-2.0); %Eosinophils 5.8 % (0.0-6.0); %Lymphocytes 14.9 % (18.0-47.0); %Monocytes 8.8 % (0.0-10.0); %Neutrophils 69.1 % (40.0-75.0); Hemoglobin 13.5 g/dL (13.5-17.5); Mean Corpuscular HGB CONC 34.3 g/dL (32.0-36.0); Mean Corpuscular Hemoglobin 28.4 pg (27.0-33.0); Mean Corpuscular Volume 82.9 fl (81.2-95.1); Mean Platelet Volume 9.4 fl (7.4-10.4); Platelet Count 246 10x3/uL (150-450); RBC Distribution Width 14.5 % (11.5-14.5); Red Blood Cell (RBC) Count 4.75 10x6/uL (4.32-5.72); White Blood Cell (WBC) Count 6.4 10x3/uL (3.5-10.5)
[2021-05-22 04:34] LABS: Anion Gap 19 mmol/L (10-20); BUN (Urea Nitrogen) 19 mg/dL (8.4-25.7); Calc. Creatinine Clearance 103 mL/min (70-130); Calcium 9.4 mg/dL (7.8-10.44); Carbon Dioxide 26 mmol/L (22-29); Chloride 98 mmol/L (98-107); Glucose 107 mg/dL (70-105); Potassium 3.6 mmol/L (3.5-5.1); Sodium 139 mmol/L (136-145)
[2021-05-22] MEDS: Furosemide 40 MG/4 ML VIAL SLOW IVP SCH (06:14)
[2021-05-22] MEDS: Meclizine HCl 25 MG TAB PO SCH ×3 (06:28→22:04)
[2021-05-22] MEDS: Mometasone/Formoterol 200/5 60 PUFF INH SCH ×2 (06:32→19:36)
[2021-05-22] MEDS: metFORMIN 500 MG TAB PO SCH ×2 (09:50→18:09)
[2021-05-22] MEDS: Montelukast Sodium 10 mg Tablet PO SCH (09:50)
[2021-05-22] MEDS: Clopidogrel Bisulfate 75 MG TAB PO SCH (09:51)
[2021-05-22] MEDS: Enoxaparin Sodium 40 MG/0.4 ML SYRINGE SC SCH (09:51)
[2021-05-22] MEDS: Ferrous Sulfate 325 MG TAB PO SCH (09:51)
[2021-05-22] MEDS: Nitroglycerin 0.1mg/Hour PATCH TD SCH (09:51)
[2021-05-22] MEDS: Potassium Chloride 20 MEQ TAB PO SCH (09:51)
[2021-05-22] MEDS: Aspirin 300 MG Suppository PR SCH (09:52)
[2021-05-22] MEDS ORDERED: Aspirin 325 mg Enteric Coated Tablet PO SCH (12:00)
[2021-05-22] MEDS: rOPINIRole HCl 1 MG TAB PO SCH (20:29)
[2021-05-22] MEDS: Acetaminophen 325 MG TAB PO PRN (20:30)
[2021-05-22] MEDS: Atorvastatin Calcium 40 MG TAB PO SCH (20:30)
[2021-05-23 04:57] LABS: #Basophils 0.1 10x3/uL (0.0-0.2); #Eosinphils 0.4 10x3/uL (0.0-0.5); #Monocytes 0.6 10x3/uL (0.0-1.1); #Neutrophils 3.8 10x3/uL (1.5-8.4); %Basophils 0.8 % (0.0-2.0); %Eosinophils 6.1 % (0.0-6.0); %Lymphocytes 21.1 % (18.0-47.0); %Neutrophils 62.7 % (40.0-75.0); Hemoglobin 13.1 g/dL (13.5-17.5); Mean Corpuscular HGB CONC 34.2 g/dL (32.0-36.0); Mean Corpuscular Hemoglobin 28.4 pg (27.0-33.0); Mean Corpuscular Volume 82.9 fl (81.2-95.1); Mean Platelet Volume 9.2 fl (7.4-10.4); Platelet Count 213 10x3/uL (150-450); RBC Distribution Width 14.4 % (11.5-14.5); Red Blood Cell (RBC) Count 4.62 10x6/uL (4.32-5.72); White Blood Cell (WBC) Count 6.1 10x3/uL (3.5-10.5)
[2021-05-23] MEDS: Mometasone/Formoterol 200/5 60 PUFF INH SCH ×2 (05:12→20:31)
[2021-05-23 05:16] LABS: Anion Gap 17 mmol/L (10-20); BUN (Urea Nitrogen) 17 mg/dL (8.4-25.7); Calc. Creatinine Clearance 124 mL/min (70-130); Calcium 9.1 mg/dL (7.8-10.44); Carbon Dioxide 26 mmol/L (22-29); Chloride 100 mmol/L (98-107); Glucose 108 mg/dL (70-105); Magnesium 1.6 mg/dL (1.6-2.6); Potassium 3.5 mmol/L (3.5-5.1); Sodium 139 mmol/L (136-145)
[2021-05-23] MEDS: Meclizine HCl 25 MG TAB PO SCH ×3 (07:00→21:14)
[2021-05-23] MEDS: Ferrous Sulfate 325 MG TAB PO SCH (09:18)
[2021-05-23] MEDS: Carvedilol 12.5 MG TAB PO SCH ×2 (09:18→16:56)
[2021-05-23] MEDS: Potassium Chloride 20 MEQ TAB PO SCH (09:18)
[2021-05-23] MEDS: metFORMIN 500 MG TAB PO SCH ×2 (09:18→16:56)
[2021-05-23] MEDS: Clopidogrel Bisulfate 75 MG TAB PO SCH (09:18)
[2021-05-23] MEDS: Aspirin 325 mg Enteric Coated Tablet PO SCH (09:19)
[2021-05-23] MEDS: Montelukast Sodium 10 mg Tablet PO SCH (09:19)
[2021-05-23] MEDS: Enoxaparin Sodium 40 MG/0.4 ML SYRINGE SC SCH (09:19)
[2021-05-23] MEDS: Furosemide 20 MG TAB PO SCH (15:18)
[2021-05-23] MEDS: rOPINIRole HCl 1 MG TAB PO SCH (21:13)
[2021-05-23] MEDS: Atorvastatin Calcium 40 MG TAB PO SCH (21:14)
[2021-05-23] MEDS: Acetaminophen 325 MG TAB PO PRN (21:22)
[2021-05-24 04:21] LABS: #Basophils 0.1 10x3/uL (0.0-0.2); #Eosinphils 0.5 10x3/uL (0.0-0.5); #Monocytes 0.7 10x3/uL (0.0-1.1); #Neutrophils 4.7 10x3/uL (1.5-8.4); %Basophils 0.9 % (0.0-2.0); %Eosinophils 6.6 % (0.0-6.0); %Lymphocytes 23.7 % (18.0-47.0); %Monocytes 8.8 % (0.0-10.0); %Neutrophils 59.6 % (40.0-75.0); Mean Corpuscular HGB CONC 34.4 g/dL (32.0-36.0); Mean Corpuscular Hemoglobin 28.5 pg (27.0-33.0); Mean Corpuscular Volume 82.9 fl (81.2-95.1); Mean Platelet Volume 9.7 fl (7.4-10.4); Platelet Count 237 10x3/uL (150-450); RBC Distribution Width 14.5 % (11.5-14.5); Red Blood Cell (RBC) Count 4.56 10x6/uL (4.32-5.72); White Blood Cell (WBC) Count 7.9 10x3/uL (3.5-10.5)
[2021-05-24 04:30] LABS: Anion Gap 18 mmol/L (10-20); BUN (Urea Nitrogen) 19 mg/dL (8.4-25.7); Calc. Creatinine Clearance 109 mL/min (70-130); Calcium 9.4 mg/dL (7.8-10.44); Carbon Dioxide 26 mmol/L (22-29); Chloride 99 mmol/L (98-107); Glucose 111 mg/dL (70-105); Magnesium 1.4 mg/dL (1.6-2.6); Phosphorus 3.8 mg/dL (2.3-4.7); Potassium 3.5 mmol/L (3.5-5.1); Sodium 139 mmol/L (136-145)
[2021-05-24] MEDS ORDERED: Magnesium 2 GM/50 ML 2 GM in Premix Bag 1 BAG IVPB SCH ×2 (06:00→07:30)
[2021-05-24] MEDS: Meclizine HCl 25 MG TAB PO SCH ×2 (06:21→14:58)
[2021-05-24] MEDS: Mometasone/Formoterol 200/5 60 PUFF INH SCH ×2 (09:19→19:45)
[2021-05-24] MEDS ORDERED: Amlodipine 5 MG TAB PO SCH (09:45)
[2021-05-24] MEDS: metFORMIN 500 MG TAB PO SCH ×2 (10:17→18:05)
[2021-05-24] MEDS: Enoxaparin Sodium 40 MG/0.4 ML SYRINGE SC SCH (10:17)
[2021-05-24] MEDS: Furosemide 20 MG TAB PO SCH ×2 (10:18→14:58)
[2021-05-24] MEDS: Montelukast Sodium 10 mg Tablet PO SCH (10:18)
[2021-05-24] MEDS: Potassium Chloride 20 MEQ TAB PO SCH (10:18)
[2021-05-24] MEDS: Clopidogrel Bisulfate 75 MG TAB PO SCH (10:19)
[2021-05-24] MEDS: Ferrous Sulfate 325 MG TAB PO SCH (10:19)
[2021-05-24] MEDS: Carvedilol 12.5 MG TAB PO SCH ×2 (10:19→18:06)
[2021-05-24] MEDS: Aspirin 325 mg Enteric Coated Tablet PO SCH (10:19)
[2021-05-24] MEDS: Acetaminophen 325 MG TAB PO PRN (14:58)
[2021-05-24 17:26] VITALS: TEMP 97.1
[2021-05-24 19:04] VITALS: BP 134/61
[2021-05-25] MEDS ORDERED: Amlodipine 5 MG TAB PO SCH (09:00)
== END 2021-05-24 19:30 | disposition home health service (06) | DRG 65 ==
LOC: CSHERS 19:23 → CSHTELE 22:30 → INTOOBSV 22:30 → OBSVTOIN 22:30 → UNDOADMOB 22:30 → CSHTELE 05-16 12:56 → OBSVTOIN 05-16 12:56
PROVIDERS: ADMIT Family Medicine; ATTEND Family Medicine
DX: I63.89 Other cerebral infarction (principal); N17.9 Acute kidney failure, unspecified; I13.0 Hypertensive heart and chronic kidney disease with heart failure and stage 1 through stage 4 chronic kidney disease, or unspecified chronic kidney disease; I50.32 Chronic diastolic (congestive) heart failure; Z68.41 Body mass index [BMI] 40.0-44.9, adult; Z20.822 Contact with and (suspected) exposure to COVID-19; G47.33 Obstructive sleep apnea (adult) (pediatric); E11.9 Type 2 diabetes mellitus without complications; J44.9 Chronic obstructive pulmonary disease, unspecified; F17.210 Nicotine dependence, cigarettes, uncomplicated; E78.5 Hyperlipidemia, unspecified; I25.10 Atherosclerotic heart disease of native coronary artery without angina pectoris; E11.65 Type 2 diabetes mellitus with hyperglycemia; E11.22 Type 2 diabetes mellitus with diabetic chronic kidney disease; E66.01 Morbid (severe) obesity due to excess calories; R13.12 Dysphagia, oropharyngeal phase; E87.6 Hypokalemia; G43.909 Migraine, unspecified, not intractable, without status migrainosus; R79.89 Other specified abnormal findings of blood chemistry; N18.31 Chronic kidney disease, stage 3a; F41.9 Anxiety disorder, unspecified; I95.1 Orthostatic hypotension; Z86.711 Personal history of pulmonary embolism; Z99.81 Dependence on supplemental oxygen; Z86.73 Personal history of transient ischemic attack (TIA), and cerebral infarction without residual deficits; Z79.899 Other long term (current) drug therapy; Z79.84 Long term (current) use of oral hypoglycemic drugs; Z79.82 Long term (current) use of aspirin; Z79.02 Long term (current) use of antithrombotics/antiplatelets; Z90.49 Acquired absence of other specified parts of digestive tract; Z98.1 Arthrodesis status
CPT/HCPCS: 36415; 36416; 70450; 70496; 70498; 70551; 70552; 71045; 72141; 74018; 74230; 80048; 80053; 80061; 82553; 83735; 84100; 84484; 85025; 93005; 93010; 93306; 93880; 94664; 94760; 96372; 96374; 96375; C9113; G0378; J1650; J1940; J2060; J3475; J7050; J7120; U0003; U0005

== ENCOUNTER 2021-09-12 11:15 | Observation (INO) | payer MEDICARE ==
[2021-09-12 12:23] LABS: #Basophils 0.1 10x3/uL (0.0-0.2); #Eosinphils 0.4 10x3/uL (0.0-0.5); #Monocytes 0.6 10x3/uL (0.0-1.1); #Neutrophils 7.1 10x3/uL (1.5-8.4); %Basophils 0.6 % (0.0-2.0); %Eosinophils 3.9 % (0.0-6.0); %Lymphocytes 17.2 % (18.0-47.0); %Monocytes 5.9 % (0.0-10.0); %Neutrophils 71.8 % (40.0-75.0); Hemoglobin 14.4 g/dL (13.5-17.5); Mean Corpuscular HGB CONC 34.6 g/dL (32.0-36.0); Mean Corpuscular Hemoglobin 30.1 pg (27.0-33.0); Mean Platelet Volume 8.8 fl (7.4-10.4); Platelet Count 316 10x3/uL (150-450); Red Blood Cell (RBC) Count 4.78 10x6/uL (4.32-5.72); White Blood Cell (WBC) Count 9.9 10x3/uL (3.5-10.5)
[2021-09-12 12:34] LABS: PTT 24.2 sec (22.0-33.0); Prothrombin Time 10.8 sec (9.5-12.1)
[2021-09-12 12:37] LABS: ALT (SGPT) 30 U/L (8-55); AST (SGOT) 20 U/L (5-34); Albumin 4.4 g/dL (3.5-5.0); Alkaline Phosphatase 68 U/L (40-110); Anion Gap 19 mmol/L (10-20); BUN (Urea Nitrogen) 23 mg/dL (8.4-25.7); Bilirubin, Total 0.3 mg/dL (0.2-1.2); Calc. Creatinine Clearance 0 mL/min (70-130); Calcium 9.3 mg/dL (7.8-10.44); Carbon Dioxide 22 mmol/L (22-29); Chloride 103 mmol/L (98-107); Glucose 149 mg/dL (70-105); Potassium 4.4 mmol/L (3.5-5.1); Protein, Total 7.4 g/dL (6.0-8.3); Sodium 140 mmol/L (136-145)
[2021-09-12] MEDS ORDERED: Aspirin 325 MG TAB ONE (13:27)
[2021-09-12 13:34] LABS: Bilirubin Neg (Negative); Blood, Urine Negative (Negative); Clarity Clear (Clear); Glucose, Urine (Dipstick) Normal (Negative); Ketone, Urine Negative (Negative); Leukocyte Negative (Negative); Nitrite Negative (Negative); Protein, Urine (Dipstick) Negative (Neg-Trace); Specific Gravity, Urine 1.015 (1.002-1.036); Urobilinogen Normal mg/dL (Less than 2)
[2021-09-12] MEDS ORDERED: Dextrose 50% Abboject 50 ML SYRINGE SLOW IVP PRN (14:27)
[2021-09-12] MEDS ORDERED: HumaLOG 300 UNITS/3 ML VIAL SC PRN ×2 (14:27)
[2021-09-12] MEDS ORDERED: Dextrose 5% in Water 1,000 ML IV PRN (14:27)
[2021-09-12] MEDS ORDERED: Ondansetron PF 4 MG/2 ML Vial IVP PRN (14:30)
[2021-09-12] MEDS ORDERED: Senokot S 8.6-50 MG TAB PO PRN (14:30)
[2021-09-12] MEDS ORDERED: Acetaminophen 325 MG TAB PO PRN (14:30)
[2021-09-12] MEDS ORDERED: Ondansetron ODT 4 MG TAB PO PRN (14:30)
[2021-09-12] MEDS: Sodium Chloride 0.9% 1,000 ML IV SCH (16:29)
[2021-09-12] MEDS: Nicotine 14 MG PATCH TD SCH (16:29)
[2021-09-12 17:18] LABS: Magnesium 1.8 mg/dL (1.6-2.6)
[2021-09-12 17:24] LABS: Troponin I 0.023 ng/mL (< 0.028)
[2021-09-12 17:41] VITALS: BMI 40.6
[2021-09-12 17:45] LABS: SARS-CoV-2 NAA Rapid Test Not Detected (NotDetected)
[2021-09-12 19:10] LABS: Troponin I 0.026 ng/mL (< 0.028)
[2021-09-12] MEDS ORDERED: Albuterol Sulfate 2.5 mg/3 ml Neb NEB PRN (22:37)
[2021-09-12 23:31] LABS: Bilirubin Neg (Negative); Blood, Urine Negative (Negative); Clarity Clear (Clear); Glucose, Urine (Dipstick) Normal (Negative); Ketone, Urine Negative (Negative); Leukocyte Negative (Negative); Nitrite Negative (Negative); Protein, Urine (Dipstick) Negative (Neg-Trace); Urobilinogen Normal mg/dL (Less than 2)
[2021-09-12] MEDS ORDERED: rOPINIRole HCl 1 MG TAB PO SCH (23:45)
[2021-09-13 00:04] LABS: Bacteria/HPF Rare-Few HPF (None Seen); RBC/HPF 0-3 HPF (0-3); Squamous Epithelial 0-3 HPF (0-3); WBC/HPF 0-3 HPF (0-3)
[2021-09-13 05:02] LABS: #Basophils 0.1 10x3/uL (0.0-0.2); #Eosinphils 0.5 10x3/uL (0.0-0.5); #Monocytes 0.7 10x3/uL (0.0-1.1); #Neutrophils 4.7 10x3/uL (1.5-8.4); %Basophils 0.6 % (0.0-2.0); %Eosinophils 5.6 % (0.0-6.0); %Lymphocytes 27.1 % (18.0-47.0); %Monocytes 8.2 % (0.0-10.0); %Neutrophils 57.5 % (40.0-75.0); Hemoglobin 13.3 g/dL (13.5-17.5); Mean Corpuscular HGB CONC 33.8 g/dL (32.0-36.0); Mean Corpuscular Hemoglobin 29.8 pg (27.0-33.0); Mean Corpuscular Volume 87.9 fl (81.2-95.1); Mean Platelet Volume 8.9 fl (7.4-10.4); Platelet Count 286 10x3/uL (150-450); Red Blood Cell (RBC) Count 4.47 10x6/uL (4.32-5.72); White Blood Cell (WBC) Count 8.2 10x3/uL (3.5-10.5)
[2021-09-13] MEDS: Sodium Chloride 0.9% 1,000 ML IV SCH (05:06)
[2021-09-13 05:17] LABS: Anion Gap 14 mmol/L (10-20); BUN (Urea Nitrogen) 24 mg/dL (8.4-25.7); Calc. Creatinine Clearance 100 mL/min (70-130); Calcium 8.7 mg/dL (7.8-10.44); Carbon Dioxide 27 mmol/L (22-29); Cardiac Risk 6.2 (Less than 4.5); Chloride 101 mmol/L (98-107); Cholesterol 149 mg/dl (< 200 Desired); Glucose 118 mg/dL (70-105); HDL Cholesterol 24 mg/dL (>60 Neg Risk); LDL Cholesterol, Calculated 78 mg/dL; Potassium 3.9 mmol/L (3.5-5.1); Sodium 138 mmol/L (136-145); Triglycerides 234 mg/dL (Less than 150)
[2021-09-13] MEDS: Montelukast Sodium 10 mg Tablet PO SCH (08:33)
[2021-09-13] MEDS: metFORMIN 500 MG TAB PO SCH ×2 (08:33→17:09)
[2021-09-13] MEDS: Potassium Chloride 20 MEQ TAB PO SCH (08:33)
[2021-09-13] MEDS: Mometasone/Formoterol 200/5 60 PUFF INH SCH ×2 (11:10→19:40)
[2021-09-13] MEDS: Nicotine 14 MG PATCH TD SCH (17:09)
[2021-09-13] MEDS: Carvedilol 25 MG TAB PO SCH (20:12)
[2021-09-13] MEDS ORDERED: Carvedilol 12.5 MG TAB PO SCH (21:00)
[2021-09-13] MEDS ORDERED: Amlodipine 5 MG TAB PO SCH (21:00)
[2021-09-13] MEDS ORDERED: Atorvastatin Calcium 40 MG TAB PO SCH (21:00)
[2021-09-13] MEDS ORDERED: rOPINIRole HCl 1 MG TAB PO SCH (21:00)
[2021-09-14 04:56] LABS: Anion Gap 15 mmol/L (10-20); BUN (Urea Nitrogen) 19 mg/dL (8.4-25.7); Calc. Creatinine Clearance 114 mL/min (70-130); Calcium 9.1 mg/dL (7.8-10.44); Carbon Dioxide 24 mmol/L (22-29); Chloride 103 mmol/L (98-107); Glucose 122 mg/dL (70-105); Potassium 4.1 mmol/L (3.5-5.1); Sodium 138 mmol/L (136-145)
[2021-09-14 05:08] LABS: #Basophils 0.1 10x3/uL (0.0-0.2); #Eosinphils 0.4 10x3/uL (0.0-0.5); #Monocytes 0.5 10x3/uL (0.0-1.1); #Neutrophils 4.9 10x3/uL (1.5-8.4); %Basophils 0.9 % (0.0-2.0); %Eosinophils 4.4 % (0.0-6.0); %Lymphocytes 26.2 % (18.0-47.0); %Monocytes 6.8 % (0.0-10.0); %Neutrophils 60.9 % (40.0-75.0); Hemoglobin 12.7 g/dL (13.5-17.5); Mean Corpuscular Hemoglobin 29.7 pg (27.0-33.0); Mean Corpuscular Volume 87.4 fl (81.2-95.1); Mean Platelet Volume 8.9 fl (7.4-10.4); Platelet Count 275 10x3/uL (150-450); RBC Distribution Width 14.1 % (11.5-14.5); Red Blood Cell (RBC) Count 4.27 10x6/uL (4.32-5.72)
[2021-09-14] MEDS: Mometasone/Formoterol 200/5 60 PUFF INH SCH (07:08)
[2021-09-14] MEDS: Carvedilol 25 MG TAB PO SCH (08:37)
[2021-09-14] MEDS: Montelukast Sodium 10 mg Tablet PO SCH (08:38)
[2021-09-14] MEDS: Potassium Chloride 20 MEQ TAB PO SCH (08:38)
[2021-09-14] MEDS ORDERED: Clopidogrel Bisulfate 75 MG TAB PO SCH (09:00)
[2021-09-14] MEDS ORDERED: Furosemide 40 MG TAB PO SCH (09:00)
[2021-09-14] MEDS ORDERED: Aspirin 325 MG TAB PO SCH (09:00)
[2021-09-14 12:22] VITALS: BP 129/69; TEMP 97.7
== END 2021-09-14 11:01 | disposition home or self-care (01) ==
LOC: CSHERS 11:15 → CSHTELE 15:30 → INTOOBSV 15:30
PROVIDERS: ADMIT Hospitalist; ATTEND Nurse Practitioner Acute Care
DX: G45.9 Transient cerebral ischemic attack, unspecified (principal); G93.0 Cerebral cysts; I12.9 Hypertensive chronic kidney disease with stage 1 through stage 4 chronic kidney disease, or unspecified chronic kidney disease; E11.22 Type 2 diabetes mellitus with diabetic chronic kidney disease; N18.30 Chronic kidney disease, stage 3 unspecified; Z20.822 Contact with and (suspected) exposure to COVID-19; N17.9 Acute kidney failure, unspecified; E78.5 Hyperlipidemia, unspecified; F17.210 Nicotine dependence, cigarettes, uncomplicated; G47.33 Obstructive sleep apnea (adult) (pediatric); J44.9 Chronic obstructive pulmonary disease, unspecified; E66.01 Morbid (severe) obesity due to excess calories; Z68.41 Body mass index [BMI] 40.0-44.9, adult; Z79.02 Long term (current) use of antithrombotics/antiplatelets; Z79.82 Long term (current) use of aspirin; Z79.84 Long term (current) use of oral hypoglycemic drugs; Z79.899 Other long term (current) drug therapy; Z86.73 Personal history of transient ischemic attack (TIA), and cerebral infarction without residual deficits; Z86.711 Personal history of pulmonary embolism
CPT/HCPCS: 70450; 70551; 71045; 72141; 80048 ×2; 80053; 80061; 81001; 81003; 82962 ×3; 83735; 84484 ×2; 85025 ×3; 85610; 85730; 93005; 94640; 94664; 94760; 97139 ×3; 99285; U0002; 36415; 36416; G0378; J7050

== ENCOUNTER 2021-12-08 03:29 | Inpatient (IN) | payer MEDICARE ==
[2021-12-08 04:21] LABS: #Basophils 0.1 10x3/uL (0.0-0.2); #Eosinphils 0.1 10x3/uL (0.0-0.5); #Monocytes 0.6 10x3/uL (0.0-1.1); #Neutrophils 6.1 10x3/uL (1.5-8.4); %Basophils 0.7 % (0.0-2.0); %Eosinophils 1.8 % (0.0-6.0); %Lymphocytes 5.8 % (18.0-47.0); %Monocytes 7.5 % (0.0-10.0); %Neutrophils 82.7 % (40.0-75.0); Hemoglobin 14.4 g/dL (13.5-17.5); Mean Corpuscular HGB CONC 33.5 g/dL (32.0-36.0); Mean Corpuscular Hemoglobin 29.6 pg (27.0-33.0); Mean Corpuscular Volume 88.3 fl (81.2-95.1); Mean Platelet Volume 8.8 fl (7.4-10.4); Platelet Count 297 10x3/uL (150-450); RBC Distribution Width 14.9 % (11.5-14.5); Red Blood Cell (RBC) Count 4.87 10x6/uL (4.32-5.72); White Blood Cell (WBC) Count 7.4 10x3/uL (3.5-10.5)
[2021-12-08] MEDS ORDERED: methylPREDNISolone Sod Succ/PF 125 MG/2 ML VIAL ONE (04:33)
[2021-12-08 04:38] LABS: ALT (SGPT) 30 U/L (8-55); AST (SGOT) 26 U/L (5-34); Albumin 4.6 g/dL (3.5-5.0); Alkaline Phosphatase 82 U/L (40-110); Anion Gap 15 mmol/L (10-20); BUN (Urea Nitrogen) 13 mg/dL (8.4-25.7); Bilirubin, Total 0.4 mg/dL (0.2-1.2); Calc. Creatinine Clearance 0 mL/min (70-130); Calcium 9.8 mg/dL (7.8-10.44); Carbon Dioxide 27 mmol/L (22-29); Chloride 104 mmol/L (98-107); Estimated GFR 58; Globulin 3.1 g/dL (2.4-3.5); Glucose 187 mg/dL (70-105); Potassium 4.7 mmol/L (3.5-5.1); Protein, Total 7.7 g/dL (6.0-8.3); Sodium 141 mmol/L (136-145)
[2021-12-08 05:05] LABS: SARS-CoV-2 NAA Rapid Test DETECTED (NotDetected)
[2021-12-08] MEDS ORDERED: Aspirin Chewable 81 MG TAB ONE (07:29)
[2021-12-08] MEDS ORDERED: Nitroglycerin 2% Ointment 1 INCH/1 GM Packet ONE (07:29)
[2021-12-08] MEDS ORDERED: Aspirin 81 mg Enteric Coated Tablet PO SCH (09:00)
[2021-12-08 09:11] LABS: Magnesium 1.6 mg/dL (1.6-2.6)
[2021-12-08] MEDS ORDERED: Dextrose 50% Abboject 50 ML SYRINGE SLOW IVP PRN (09:23)
[2021-12-08] MEDS ORDERED: Dextrose 5% in Water 1,000 ML IV PRN (09:23)
[2021-12-08] MEDS: Nicotine 7 MG PATCH TD SCH (09:56)
[2021-12-08] MEDS: Magnesium 2 GM/50 ML(in water) 2 GM in Premix Bag 1 BAG IVPB SCH ×2 (09:57→11:55)
[2021-12-08 10:05] VITALS: BMI 40.4
[2021-12-08] MEDS: HumaLOG 300 UNITS/3 ML VIAL SC PRN ×3 (11:55→20:20)
[2021-12-08] MEDS: Carvedilol 25 MG TAB PO SCH (17:05)
[2021-12-08] MEDS: Ferrous Sulfate 325 MG TAB PO SCH (17:05)
[2021-12-08] MEDS: metFORMIN 500 MG TAB PO SCH (17:06)
[2021-12-08] MEDS: Mometasone/Formoterol 200/5 60 PUFF INH SCH (20:03)
[2021-12-08] MEDS: Amlodipine 5 MG TAB PO SCH (20:04)
[2021-12-08] MEDS: Atorvastatin Calcium 40 MG TAB PO SCH (20:04)
[2021-12-08] MEDS: Benzonatate 100 MG CAP PO PRN (20:04)
[2021-12-08] MEDS: rOPINIRole HCl 1 MG TAB PO SCH (20:04)
[2021-12-08] MEDS ORDERED: Carvedilol 12.5 MG TAB PO SCH (21:00)
[2021-12-08] MEDS ORDERED: Atorvastatin Calcium 40 MG TAB PO SCH (21:00)
[2021-12-09] MEDS: Guaifenesin DM 100-10/5 ML UDCUP PO PRN ×4 (02:42→22:16)
[2021-12-09] MEDS: Acetaminophen 325 MG TAB PO PRN ×3 (02:57→22:24)
[2021-12-09 05:16] LABS: Anion Gap 16 mmol/L (10-20); BUN (Urea Nitrogen) 18 mg/dL (8.4-25.7); Calc. Creatinine Clearance 117 mL/min (70-130); Calcium 8.8 mg/dL (7.8-10.44); Carbon Dioxide 24 mmol/L (22-29); Chloride 100 mmol/L (98-107); Estimated GFR 69; Glucose 213 mg/dL (70-105); Potassium 4.3 mmol/L (3.5-5.1); Sodium 136 mmol/L (136-145)
[2021-12-09 05:21] LABS: Mean Corpuscular HGB CONC 33.3 g/dL (32.0-36.0); Mean Corpuscular Hemoglobin 29.5 pg (27.0-33.0); Mean Corpuscular Volume 88.6 fl (81.2-95.1); Mean Platelet Volume 9.2 fl (7.4-10.4); Platelet Count 276 10x3/uL (150-450); RBC Distribution Width 14.7 % (11.5-14.5)
[2021-12-09 05:53] LABS: MDiff Complete? YES
[2021-12-09] MEDS: Mometasone/Formoterol 200/5 60 PUFF INH SCH ×2 (06:04→20:30)
[2021-12-09] MEDS: HumaLOG 300 UNITS/3 ML VIAL SC PRN ×2 (06:12→12:20)
[2021-12-09 06:13] LABS: Band 4 % (5-11); Lymphocytes 6 % (21-51); Monocytes 12 % (0-10); Neutrophil 78 % (42-75)
[2021-12-09 06:14] LABS: Critical Call w/ Read Back 3; Platelet Morphology Comment Appears Adequate; RBC Morphology Normal
[2021-12-09] MEDS: Montelukast Sodium 10 mg Tablet PO SCH (08:30)
[2021-12-09] MEDS: Clopidogrel Bisulfate 75 MG TAB PO SCH (08:30)
[2021-12-09] MEDS: Aspirin 325 MG TAB PO SCH (08:30)
[2021-12-09] MEDS: Folic Acid 1 MG TAB PO SCH (08:30)
[2021-12-09] MEDS: Carvedilol 25 MG TAB PO SCH ×2 (08:30→17:24)
[2021-12-09] MEDS: Potassium Chloride 20 MEQ TAB PO SCH (08:30)
[2021-12-09] MEDS: metFORMIN 500 MG TAB PO SCH ×2 (08:30→17:24)
[2021-12-09] MEDS: Gabapentin 300 MG CAP PO SCH (08:30)
[2021-12-09] MEDS: Nicotine 7 MG PATCH TD SCH (08:36)
[2021-12-09] MEDS ORDERED: Furosemide 40 MG TAB PO SCH (09:00)
[2021-12-09] MEDS: cefTRIAXone\\ROCEPHIN 1 GM in Sodium Chloride 0.9% 100 ML IVPB SCH (10:28)
[2021-12-09 10:39] LABS: ALV-art Gradient 148.055 mmHg (0-20); Actual Bicarbonate (HCO3a) 26.5 mEq/L (22-28); Base Excess (BEa) 1.4 mEq/L (-2.0 to +3.0); CO2 Tension 44.1 mmHg (35.0-45.0); Carboxyhemoglobin (COHb) 0.4 gm% (0.0-3.0); Hemoglobin (Hb) 12.4 g/dL (14.0-18.0); O2 Tension (PaO2), arterial 53.5 mmHg (80.0-100.0); Potassium - ABG Lab 4.2 mmol/L (3.70-5.30); Puncture Site RRA
[2021-12-09] MEDS: Benzonatate 100 MG CAP PO PRN ×2 (15:17→22:10)
[2021-12-09] MEDS: Ferrous Sulfate 325 MG TAB PO SCH (17:24)
[2021-12-09] MEDS: Atorvastatin Calcium 40 MG TAB PO SCH (20:56)
[2021-12-09] MEDS: Amlodipine 5 MG TAB PO SCH (20:57)
[2021-12-09] MEDS: rOPINIRole HCl 1 MG TAB PO SCH (20:57)
[2021-12-10] MEDS: Mometasone/Formoterol 200/5 60 PUFF INH SCH ×2 (06:30→19:30)
[2021-12-10 06:38] LABS: Anion Gap 13 mmol/L (10-20); BUN (Urea Nitrogen) 26 mg/dL (8.4-25.7); Calc. Creatinine Clearance 100 mL/min (70-130); Calcium 8.2 mg/dL (7.8-10.44); Carbon Dioxide 27 mmol/L (22-29); Chloride 100 mmol/L (98-107); Estimated GFR 57; Glucose 127 mg/dL (70-105); Potassium 3.9 mmol/L (3.5-5.1); Sodium 136 mmol/L (136-145)
[2021-12-10 06:48] LABS: Hemoglobin 12.8 g/dL (13.5-17.5); Mean Corpuscular HGB CONC 34.3 g/dL (32.0-36.0); Mean Corpuscular Hemoglobin 29.8 pg (27.0-33.0); Mean Corpuscular Volume 86.9 fl (81.2-95.1); Mean Platelet Volume 8.8 fl (7.4-10.4); Platelet Count 218 10x3/uL (150-450); RBC Distribution Width 15.1 % (11.5-14.5); Red Blood Cell (RBC) Count 4.29 10x6/uL (4.32-5.72); White Blood Cell (WBC) Count 5.7 10x3/uL (3.5-10.5)
[2021-12-10 06:53] LABS: MDiff Complete? YES
[2021-12-10 07:35] LABS: Band 5 % (5-11); Eosinophils 1 % (0-10); Lymphocytes 22 % (21-51); Metamyelocyte 1 % (0-0); Monocytes 12 % (0-10); Neutrophil 57 % (42-75); Reactive Lymphocytes 2 % (0-10)
[2021-12-10 07:36] LABS: Platelet Morphology Comment Appears Adequate
[2021-12-10 07:37] LABS: RBC Morphology Normal
[2021-12-10] MEDS: Montelukast Sodium 10 mg Tablet PO SCH (09:18)
[2021-12-10] MEDS: Gabapentin 300 MG CAP PO SCH (09:18)
[2021-12-10] MEDS: Clopidogrel Bisulfate 75 MG TAB PO SCH (09:18)
[2021-12-10] MEDS: Folic Acid 1 MG TAB PO SCH (09:18)
[2021-12-10] MEDS: metFORMIN 500 MG TAB PO SCH ×2 (09:18→17:15)
[2021-12-10] MEDS: Azithromycin 250 MG TAB PO SCH (09:19)
[2021-12-10] MEDS: Benzonatate 100 MG CAP PO PRN ×3 (09:19→20:21)
[2021-12-10] MEDS: Potassium Chloride 20 MEQ TAB PO SCH (09:19)
[2021-12-10] MEDS: Aspirin 325 MG TAB PO SCH (09:19)
[2021-12-10] MEDS: Dexamethasone 4 MG TAB PO SCH (09:19)
[2021-12-10] MEDS: Carvedilol 25 MG TAB PO SCH ×2 (09:19→17:14)
[2021-12-10] MEDS: Guaifenesin DM 100-10/5 ML UDCUP PO PRN ×2 (09:20→17:46)
[2021-12-10] MEDS: Acetaminophen 325 MG TAB PO PRN (09:20)
[2021-12-10] MEDS: Nicotine 7 MG PATCH TD SCH (09:24)
[2021-12-10] MEDS: cefTRIAXone\\ROCEPHIN 1 GM in Sodium Chloride 0.9% 100 ML IVPB SCH (09:24)
[2021-12-10] MEDS ORDERED: Metoclopramide HCl 10 MG/2 ML VIAL IVP SCH ×2 (09:30→23:30)
[2021-12-10] MEDS: Ferrous Sulfate 325 MG TAB PO SCH (17:14)
[2021-12-10] MEDS: HumaLOG 300 UNITS/3 ML VIAL SC PRN ×2 (17:16→20:45)
[2021-12-10] MEDS: Amlodipine 5 MG TAB PO SCH (20:19)
[2021-12-10] MEDS: Atorvastatin Calcium 40 MG TAB PO SCH (20:20)
[2021-12-10] MEDS: rOPINIRole HCl 1 MG TAB PO SCH (20:20)
[2021-12-11] MEDS: Guaifenesin DM 100-10/5 ML UDCUP PO PRN ×2 (00:04→08:17)
[2021-12-11] MEDS ORDERED: Melatonin 3 MG TAB PO PRN (02:32)
[2021-12-11] MEDS ORDERED: Melatonin 3 MG TAB PO SCH (02:45)
[2021-12-11 04:48] LABS: #Monocytes 0.5 10x3/uL (0.0-1.1); #Neutrophils 3.6 10x3/uL (1.5-8.4); %Basophils 0.2 % (0.0-2.0); %Lymphocytes 19.8 % (18.0-47.0); %Monocytes 10.4 % (0.0-10.0); %Neutrophils 69.2 % (40.0-75.0); Hemoglobin 13.2 g/dL (13.5-17.5); Mean Corpuscular HGB CONC 34.4 g/dL (32.0-36.0); Mean Corpuscular Hemoglobin 29.9 pg (27.0-33.0); Mean Corpuscular Volume 87.1 fl (81.2-95.1); Platelet Count 225 10x3/uL (150-450); RBC Distribution Width 14.4 % (11.5-14.5); Red Blood Cell (RBC) Count 4.41 10x6/uL (4.32-5.72); White Blood Cell (WBC) Count 5.2 10x3/uL (3.5-10.5)
[2021-12-11 04:56] LABS: Anion Gap 15 mmol/L (10-20); BUN (Urea Nitrogen) 24 mg/dL (8.4-25.7); Calc. Creatinine Clearance 120 mL/min (70-130); Calcium 8.6 mg/dL (7.8-10.44); Carbon Dioxide 23 mmol/L (22-29); Chloride 101 mmol/L (98-107); Estimated GFR 71; Glucose 224 mg/dL (70-105); Potassium 4.7 mmol/L (3.5-5.1); Sodium 134 mmol/L (136-145)
[2021-12-11] MEDS: HumaLOG 300 UNITS/3 ML VIAL SC PRN (06:24)
[2021-12-11] MEDS ORDERED: Furosemide 40 MG TAB PO SCH (07:30)
[2021-12-11] MEDS: Mometasone/Formoterol 200/5 60 PUFF INH SCH (07:36)
[2021-12-11] MEDS: Montelukast Sodium 10 mg Tablet PO SCH (08:17)
[2021-12-11] MEDS: Azithromycin 250 MG TAB PO SCH (08:18)
[2021-12-11] MEDS: metFORMIN 500 MG TAB PO SCH (08:18)
[2021-12-11] MEDS: Carvedilol 25 MG TAB PO SCH (08:18)
[2021-12-11] MEDS: Potassium Chloride 20 MEQ TAB PO SCH (08:18)
[2021-12-11] MEDS: Benzonatate 100 MG CAP PO PRN (08:18)
[2021-12-11] MEDS: Dexamethasone 4 MG TAB PO SCH (08:18)
[2021-12-11] MEDS: Clopidogrel Bisulfate 75 MG TAB PO SCH (08:18)
[2021-12-11] MEDS: Folic Acid 1 MG TAB PO SCH (08:19)
[2021-12-11] MEDS: cefTRIAXone\\ROCEPHIN 1 GM in Sodium Chloride 0.9% 100 ML IVPB SCH (08:19)
[2021-12-11] MEDS: Nicotine 7 MG PATCH TD SCH (08:19)
[2021-12-11] MEDS: Aspirin 325 MG TAB PO SCH (08:19)
[2021-12-11] MEDS: Gabapentin 300 MG CAP PO SCH (08:19)
[2021-12-11] MEDS ORDERED: Metoclopramide HCl 10 MG/2 ML VIAL IVP PRN (08:28)
[2021-12-11 13:44] VITALS: TEMP 97.7
[2021-12-11 15:00] VITALS: BP 136/88
== END 2021-12-11 17:16 | disposition home or self-care (01) | DRG 177 ==
LOC: CSHERS 03:29 → INTOOBSV 07:30 → CSHTELE 07:30 → OBSVTOIN 12-09 09:51
PROVIDERS: ADMIT Internal Medicine; ATTEND Family Medicine
PROC: 5A09357 Assistance with Respiratory Ventilation, Less than 24 Consecutive Hours, Continuous Positive Airway Pressure (ICD-10-PCS; principal; 2021-12-09)
PROC: 3E0DX3Z Introduction of Anti-inflammatory into Mouth and Pharynx, External Approach (ICD-10-PCS; 2021-12-09)
PROC: 8E0ZXY6 Isolation (ICD-10-PCS; 2021-12-09)
DX: U07.1 COVID-19 (principal); J96.21 Acute and chronic respiratory failure with hypoxia; Z68.41 Body mass index [BMI] 40.0-44.9, adult; J44.1 Chronic obstructive pulmonary disease with (acute) exacerbation; I50.32 Chronic diastolic (congestive) heart failure; K21.9 Gastro-esophageal reflux disease without esophagitis; E11.9 Type 2 diabetes mellitus without complications; G47.33 Obstructive sleep apnea (adult) (pediatric); I11.0 Hypertensive heart disease with heart failure; F17.210 Nicotine dependence, cigarettes, uncomplicated; E78.5 Hyperlipidemia, unspecified; I25.10 Atherosclerotic heart disease of native coronary artery without angina pectoris; E11.65 Type 2 diabetes mellitus with hyperglycemia; E66.01 Morbid (severe) obesity due to excess calories; Z79.899 Other long term (current) drug therapy; Z79.84 Long term (current) use of oral hypoglycemic drugs; Z79.82 Long term (current) use of aspirin; Z86.73 Personal history of transient ischemic attack (TIA), and cerebral infarction without residual deficits; Z98.890 Other specified postprocedural states
CPT/HCPCS: 36415; 36416; 36600; 71045; 80048; 80053; 82805; 83605; 83735; 83880; 84145; 84484; 85025; 86140; 87040; 93005; 94760; 96374; 96376; G0378; J0696; J1815; J2765; J2930; J3475; J3490; J8540

== ENCOUNTER 2022-09-14 19:46 | Emergency (ER) | payer MEDICARE ==
[2022-09-14] MEDS ORDERED: Ipratropium/Albuterol 3 ML NEB ONE (20:23)
[2022-09-14 20:32] LABS: #Basophils 0.1 10x3/uL (0.0-0.2); #Eosinphils 0.1 10x3/uL (0.0-0.5); #Monocytes 0.3 10x3/uL (0.0-1.1); #Neutrophils 7.8 10x3/uL (1.5-8.4); %Basophils 0.5 % (0.0-2.0); %Eosinophils 0.6 % (0.0-6.0); %Lymphocytes 10.7 % (18.0-47.0); %Monocytes 3.6 % (0.0-10.0); %Neutrophils 83.4 % (40.0-75.0); Hemoglobin 13.7 g/dL (13.5-17.5); Mean Corpuscular HGB CONC 32.9 g/dL (32.0-36.0); Mean Corpuscular Hemoglobin 29.8 pg (27.0-33.0); Mean Corpuscular Volume 90.4 fl (81.2-95.1); Mean Platelet Volume 9.3 fl (7.4-10.4); Platelet Count 279 10x3/uL (150-450); RBC Distribution Width 13.9 % (11.5-14.5); White Blood Cell (WBC) Count 9.4 10x3/uL (3.5-10.5)
[2022-09-14 20:49] LABS: ALT (SGPT) 18 U/L (8-55); AST (SGOT) 11 U/L (5-34); Albumin 3.8 g/dL (3.5-5.0); Alkaline Phosphatase 70 U/L (40-110); Anion Gap 15 mmol/L (10-20); BUN (Urea Nitrogen) 16 mg/dL (8.4-25.7); Bilirubin, Total 0.2 mg/dL (0.2-1.2); Calc. Creatinine Clearance 0 mL/min (70-130); Calcium 8.8 mg/dL (7.8-10.44); Carbon Dioxide 23 mmol/L (22-29); Chloride 105 mmol/L (98-107); Estimated GFR 63; Globulin 2.4 g/dL (2.4-3.5); Glucose 339 mg/dL (70-105); Potassium 4.7 mmol/L (3.5-5.1); Protein, Total 6.2 g/dL (6.0-8.3); Sodium 138 mmol/L (136-145)
[2022-09-14 21:12] LABS: CKMB 1.4 ng/mL (0-6.6)
== END 2022-09-14 23:46 | disposition home or self-care (01) ==
LOC: CSHERS 19:46
DX: R42 Dizziness and giddiness (principal); K04.7 Periapical abscess without sinus; K11.20 Sialoadenitis, unspecified; J44.9 Chronic obstructive pulmonary disease, unspecified; K21.9 Gastro-esophageal reflux disease without esophagitis; I11.0 Hypertensive heart disease with heart failure; I50.9 Heart failure, unspecified; I25.10 Atherosclerotic heart disease of native coronary artery without angina pectoris; E11.9 Type 2 diabetes mellitus without complications; F17.210 Nicotine dependence, cigarettes, uncomplicated; Z79.82 Long term (current) use of aspirin; Z79.84 Long term (current) use of oral hypoglycemic drugs
CPT/HCPCS: 36415; 36416; 70487; 71045; 80053; 82553; 84484; 85025; 93005; 94640; J7620

== ENCOUNTER 2023-10-25 21:23 | Emergency (ER) | payer MEDICARE ==
[2023-10-25] MEDS ORDERED: Ipratropium/Albuterol 3 ML NEB ONE (22:17)
[2023-10-25] MEDS ORDERED: Albuterol 2.5 MG (3 mL) NEB ONE (22:17)
[2023-10-25 23:13] LABS: #Basophils 0.07 10x3/uL (0.0-0.2); #Monocytes 0.58 10x3/uL (0.0-1.1); #Neutrophils 10.29 10x3/uL (1.5-8.4); %Basophils 0.5 % (0.0-2.0); %Eosinophils 0.8 % (0.0-6.0); %Monocytes 4.5 % (0.0-10.0); %Neutrophils 80.3 % (40.0-75.0); Hematocrit 47.6 % (38.8-50.0); Hemoglobin 16.6 g/dL (13.5-17.5); Mean Corpuscular HGB CONC 34.9 g/dL (32.0-36.0); Mean Corpuscular Hemoglobin 30.5 pg (27.0-33.0); Mean Corpuscular Volume 87.5 fL (81.2-95.1); Mean Platelet Volume 9.3 fL (7.4-10.4); Platelet Count 337 10x3/uL (150-450); RBC Distribution Width 13.3 % (11.5-14.5); Red Blood Cell (RBC) Count 5.44 10x6/uL (4.32-5.72); White Blood Cell (WBC) Count 12.8 10x3/uL (3.5-10.5)
[2023-10-25 23:14] LABS: Troponin I 0.052 ng/mL (< 0.028)
[2023-10-25 23:15] LABS: ALT (SGPT) 22 U/L (8-55); AST (SGOT) 17 U/L (5-34); Albumin 3.8 g/dL (3.5-5.0); Alkaline Phosphatase 80 U/L (40-110); Anion Gap 18 mmol/L (10-20); BUN (Urea Nitrogen) 25 mg/dL (8.4-25.7); Bilirubin, Total 0.2 mg/dL (0.2-1.2); Calc. Creatinine Clearance 0 mL/min (70-130); Calcium 9.3 mg/dL (7.8-10.44); Carbon Dioxide 20 mmol/L (22-29); Chloride 97 mmol/L (98-107); Estimated GFR 50; Potassium 4.2 mmol/L (3.5-5.1); Protein, Total 7.8 g/dL (6.0-8.3); Sodium 131 mmol/L (136-145)
[2023-10-25 23:16] LABS: Glucose 465 mg/dL (70-105)
== END 2023-10-26 00:14 | disposition home or self-care (01) ==
LOC: CSHERS 21:23
DX: J98.01 Acute bronchospasm (principal); J44.9 Chronic obstructive pulmonary disease, unspecified; K21.9 Gastro-esophageal reflux disease without esophagitis; E11.9 Type 2 diabetes mellitus without complications; I11.0 Hypertensive heart disease with heart failure; I50.9 Heart failure, unspecified; F17.210 Nicotine dependence, cigarettes, uncomplicated; I25.10 Atherosclerotic heart disease of native coronary artery without angina pectoris; Z79.82 Long term (current) use of aspirin; Z79.84 Long term (current) use of oral hypoglycemic drugs
CPT/HCPCS: 71045; 80053; 83880; 84484; 85025; 93005; 94640; J7611; J7620

== ENCOUNTER 2025-02-20 03:22 | Inpatient (IN) | payer OTHER, MEDICAID ==
[2025-02-20] MEDS ORDERED: cefTRIAXone (ROCEPHIN) 1 GM VIAL ONE (03:47)
[2025-02-20] MEDS ORDERED: Ibuprofen 200 MG TAB ONE (03:47)
[2025-02-20 04:04] LABS: Actual Bicarbonate (HCO3a) 27.1 mEq/L (22-28); Analyzer IN Cardio CS ER; Base Excess (BEa) 3.7 mEq/L (-2.0 to +3.0); CO2 Tension 37.1 mmHg (35.0-45.0); Calcium, Ionized (arterial) 1.11 mmol/L (1.12-1.30); Hematocrit-ABG 44 % (42.0-52.0); Hemoglobin (Hb) 15.1 g/dL (14.0-18.0); O2 Tension (PaO2), arterial 58.4 mmHg (> 80.0); Potassium - ABG Lab 4.66 mmol/L (3.70-5.30); Puncture Site Right Radial artery; pH, Arterial 7.482 (7.35-7.45)
[2025-02-20 04:07] LABS: ALV-art Gradient 44.955 mmHg (0-20)
[2025-02-20 05:27] LABS: #Basophils 0.06 10x3/uL (0.0-0.2); #Eosinophils 0.07 10x3/uL (0.0-0.5); #Monocytes 0.81 10x3/uL (0.0-1.1); #Neutrophils 12.66 10x3/uL (1.5-8.4); %Basophils 0.4 % (0.0-2.0); %Eosinophils 0.5 % (0.0-6.0); %Lymphocytes 9.4 % (18.0-47.0); %Monocytes 5.4 % (0.0-10.0); %Neutrophils 83.8 % (40.0-75.0); Hematocrit 40.6 % (38.8-50.0); Hemoglobin 14.0 g/dL (13.5-17.5); Mean Corpuscular Hemoglobin 30.7 pg (27.0-33.0); Mean Corpuscular Volume 89.0 fL (81.2-95.1); Platelet Count 268 10x3/uL (150-450); Red Blood Cell (RBC) Count 4.56 10x6/uL (4.32-5.72); White Blood Cell (WBC) Count 15.10 10x3/uL (3.5-10.5)
[2025-02-20] MEDS ORDERED: Albuterol 2.5 MG (3 mL) NEB ONE (05:36)
[2025-02-20] MEDS ORDERED: Ipratropium Bromide 2.5 ml Neb ONE (05:36)
[2025-02-20 05:48] LABS: Troponin I 0.042 ng/mL (< 0.028)
[2025-02-20] MEDS ORDERED: Azithromycin 500 MG VIAL ONE ×2 (06:22→06:26)
[2025-02-20] MEDS ORDERED: Calcium Carbonate 500 MG ChewTAB PO PRN (06:25)
[2025-02-20] MEDS ORDERED: Acetaminophen 325 MG TAB PO PRN (06:25)
[2025-02-20] MEDS ORDERED: Ondansetron PF 4 MG/2 ML Vial IVP PRN (06:25)
[2025-02-20] MEDS ORDERED: Aspirin 325 MG TAB ONE (06:38)
[2025-02-20] MEDS ORDERED: Enoxaparin 100 MG (1 mL) SYRINGE ONE (06:38)
[2025-02-20] MEDS ORDERED: Enoxaparin 30 MG (0.3 mL) SYRINGE ONE (06:38)
[2025-02-20] MEDS ORDERED: Dextrose 50% Abboject 50 ML SYRINGE SLOW IVP PRN (06:41)
[2025-02-20] MEDS ORDERED: Glucagon 1 MG/ML KIT IM PRN (06:41)
[2025-02-20 06:52] LABS: ALT (SGPT) 18 U/L (Less than 45); AST (SGOT) 17 U/L (11-34); Albumin 3.6 g/dL (3.1-4.5); Alkaline Phosphatase 54 U/L (40-110); Anion Gap 17 mmol/L (10-20); BUN (Urea Nitrogen) 12 mg/dL (8.4-25.7); Bilirubin, Total 0.4 mg/dL (0.3-1.2); Calc. Creatinine Clearance 0 mL/min (70-130); Calcium 8.7 mg/dL (7.8-10.44); Carbon Dioxide 23 mmol/L (23-31); Chloride 102 mmol/L (98-107); Globulin 2.9 g/dL (2.4-3.5); Glucose 181 mg/dL (80-115); Potassium 4.8 mmol/L (3.5-5.1); Sodium 137 mmol/L (136-145)
[2025-02-20 07:44] VITALS: BMI 41.3
[2025-02-20] MEDS ORDERED: Isosorbide Mononitrate 60 MG ER.TAB PO SCH ×2 (09:00)
[2025-02-20 09:07] LABS: Troponin I 0.029 ng/mL (< 0.028)
[2025-02-20] MEDS: Bupropion 150 MG SR.TAB PO SCH (10:11)
[2025-02-20] MEDS: Aspirin 81 mg Enteric Coated Tablet PO SCH (10:12)
[2025-02-20] MEDS: Heparin 5,000 UNITS/ML VIAL SC SCH (10:12)
[2025-02-20 12:36] LABS: Troponin I 0.034 ng/mL (< 0.028)
[2025-02-20 17:04] LABS: Influenza A by NAA Not Detected (NotDetected); Influenza B by NAA Not Detected (NotDetected); SARS-CoV-2 NAA Rapid Test Not Detected (NotDetected)
[2025-02-20] MEDS: Benzonatate 100 MG CAP PO PRN (20:50)
[2025-02-21 05:26] LABS: #Basophils 0.04 10x3/uL (0.0-0.2); #Eosinophils 0.09 10x3/uL (0.0-0.5); #Monocytes 0.68 10x3/uL (0.0-1.1); #Neutrophils 9.84 10x3/uL (1.5-8.4); %Basophils 0.3 % (0.0-2.0); %Eosinophils 0.8 % (0.0-6.0); %Lymphocytes 10.2 % (18.0-47.0); %Monocytes 5.7 % (0.0-10.0); %Neutrophils 82.2 % (40.0-75.0); Hematocrit 38.7 % (38.8-50.0); Hemoglobin 12.9 g/dL (13.5-17.5); Mean Corpuscular Hemoglobin 30.1 pg (27.0-33.0); Mean Corpuscular Volume 90.4 fL (81.2-95.1); Platelet Count 236 10x3/uL (150-450); Red Blood Cell (RBC) Count 4.28 10x6/uL (4.32-5.72); White Blood Cell (WBC) Count 11.96 10x3/uL (3.5-10.5)
[2025-02-21 05:39] LABS: ALT (SGPT) 13 U/L (Less than 45); AST (SGOT) 14 U/L (11-34); Albumin 3.3 g/dL (3.1-4.5); Alkaline Phosphatase 46 U/L (40-110); Anion Gap 14 mmol/L (10-20); BUN (Urea Nitrogen) 14 mg/dL (8.4-25.7); Bilirubin, Total 0.5 mg/dL (0.3-1.2); Calc. Creatinine Clearance 103 mL/min (70-130); Calcium 8.9 mg/dL (7.8-10.44); Carbon Dioxide 25 mmol/L (23-31); Chloride 102 mmol/L (98-107); Globulin 3.2 g/dL (2.4-3.5); Glucose 137 mg/dL (80-115); Potassium 4.5 mmol/L (3.5-5.1); Sodium 136 mmol/L (136-145)
[2025-02-21] MEDS: cefTRIAXone\\ROCEPHIN 1 GM in Sodium Chloride 0.9% 100 ML IVPB SCH (09:36)
[2025-02-21] MEDS: Azithromycin 500 MG in Sodium Chloride 0.9% 250 ML 250 ML IVPB SCH (09:36)
[2025-02-22] MEDS: Senokot S 8.6-50 MG TAB PO PRN (20:52)
[2025-02-22] MEDS: Melatonin 3 MG TAB PO PRN (20:53)
[2025-02-23 05:37] LABS: #Basophils 0.07 10x3/uL (0.0-0.2); #Eosinophils 0.23 10x3/uL (0.0-0.5); #Monocytes 0.70 10x3/uL (0.0-1.1); #Neutrophils 5.79 10x3/uL (1.5-8.4); %Basophils 0.8 % (0.0-2.0); %Eosinophils 2.7 % (0.0-6.0); %Lymphocytes 16.9 % (18.0-47.0); %Monocytes 8.3 % (0.0-10.0); %Neutrophils 69.2 % (40.0-75.0); Hematocrit 38.8 % (38.8-50.0); Hemoglobin 13.1 g/dL (13.5-17.5); Mean Corpuscular Hemoglobin 30.5 pg (27.0-33.0); Mean Corpuscular Volume 90.2 fL (81.2-95.1); Platelet Count 257 10x3/uL (150-450); Red Blood Cell (RBC) Count 4.30 10x6/uL (4.32-5.72); White Blood Cell (WBC) Count 8.39 10x3/uL (3.5-10.5)
[2025-02-23 05:51] LABS: Anion Gap 14 mmol/L (10-20); BUN (Urea Nitrogen) 17 mg/dL (8.4-25.7); Calc. Creatinine Clearance 106 mL/min (70-130); Calcium 9.3 mg/dL (7.8-10.44); Carbon Dioxide 25 mmol/L (23-31); Chloride 102 mmol/L (98-107); Glucose 95 mg/dL (80-115); Potassium 4.4 mmol/L (3.5-5.1); Sodium 137 mmol/L (136-145)
[2025-02-23 09:20] VITALS: TEMP 98.3
[2025-02-23 12:16] VITALS: BP 191/103
== END 2025-02-23 16:35 | disposition home or self-care (01) | DRG 871 ==
LOC: CSHERS 03:22 → SUATTDRO 03:22 → CSHTELE 06:25
PROVIDERS: ADMIT Internal Medicine; ATTEND Internal Medicine
PROC: 5A09457 Assistance with Respiratory Ventilation, 24-96 Consecutive Hours, Continuous Positive Airway Pressure (ICD-10-PCS; principal; 2025-02-20)
PROC: 4A033R1 Measurement of Arterial Saturation, Peripheral, Percutaneous Approach (ICD-10-PCS; 2025-02-20)
PROC: 3E03329 Introduction of Other Anti-infective into Peripheral Vein, Percutaneous Approach (ICD-10-PCS; 2025-02-21)
DX: A41.9 Sepsis, unspecified organism (principal); I21.A1 Myocardial infarction type 2; J18.9 Pneumonia, unspecified organism; J96.01 Acute respiratory failure with hypoxia; I69.951 Hemiplegia and hemiparesis following unspecified cerebrovascular disease affecting right dominant side; J44.0 Chronic obstructive pulmonary disease with (acute) lower respiratory infection; J44.1 Chronic obstructive pulmonary disease with (acute) exacerbation; Z68.41 Body mass index [BMI] 40.0-44.9, adult; E11.9 Type 2 diabetes mellitus without complications; I25.10 Atherosclerotic heart disease of native coronary artery without angina pectoris; G47.33 Obstructive sleep apnea (adult) (pediatric); E66.01 Morbid (severe) obesity due to excess calories; Z98.1 Arthrodesis status; K21.9 Gastro-esophageal reflux disease without esophagitis; I50.9 Heart failure, unspecified; I11.0 Hypertensive heart disease with heart failure; F17.210 Nicotine dependence, cigarettes, uncomplicated; Z79.84 Long term (current) use of oral hypoglycemic drugs; Z79.899 Other long term (current) drug therapy
CPT/HCPCS: 36415; 36416; 36600; 71250; 80048; 80053; 82550; 82805; 83605; 83880; 84145; 84484; 85025; 87040; 87428; 87636; 93005; 94640; 94760; 94762; 96365; 96372; 96375; J0456; J0696; J1644; J1650; J1815; J7050; J7611; J7644